=== PATIENT | male | born 1945 | race Caucasian/White ===

== ENCOUNTER 2020-01-07 14:45 | Outpatient (CLI) | payer MEDICARE, SELFPAY ==
--- NOTE | ~2020-01-07 | XR_ITS ---
XR chest 2V DATE: 01/07/2020 15:13 INDICATION: Cough, dry cough. History of hypertension. TECHNIQUE: PA and lateral views COMPARISON: 10/14/2011 two-view chest FINDINGS: Endovascular stent of the ectatic thoracic distal ascending aorta, aortic arch and proximal to mid descending thoracic aorta. Left-sided transvenous pacemaker device with leads overlying right atrium and right ventricle. Heart size is within normal range. There is elevation of left hemidiaphragm with mild atelectasis at the left lung base. The lungs other bryan appear clear. No pleural effusion or pulmonary vascular congestion or pneumothorax. Degenerative changes of the thoracic and lumbar spine. IMPRESSION: Thoracic aortic endovascular stent Left-sided pacemaker device Chronic elevation left leaf of diaphragm mild atelectasis at left lung base No active cardiopulmonary disease Reviewed, dictated and finalized at location A.
== END 2020-01-07 14:46 | disposition home or self-care (01) ==
PROVIDERS: PCP Family Medicine; Visit Provider Family Medicine
DX: R05 Cough (principal); Z95.0 Presence of cardiac pacemaker
CPT/HCPCS: 71046

== ENCOUNTER → 2020-09-22 16:55 | Outpatient (REF) | payer MEDICARE, SELFPAY | LOC: ANHLAB 16:55 | PROVIDERS: PCP Family Medicine; Visit Provider Nurse Practitioner | DX: L82.1 Other seborrheic keratosis (principal) | CPT/HCPCS: 88305 ==

== ENCOUNTER 2020-10-24 13:40 | Outpatient (CLI) | payer MEDICARE, SELFPAY | END 2020-10-24 13:41 | disposition home or self-care (01) | LOC: ANHCOVIDVC 13:40 | PROVIDERS: PCP Family Medicine | DX: Z23 Encounter for immunization (principal) | CPT/HCPCS: 0001A; 91300 ==

== ENCOUNTER 2020-11-14 13:42 | Outpatient (CLI) | payer MEDICARE, SELFPAY | END 2020-11-14 13:43 | disposition home or self-care (01) | LOC: ANHCOVIDVC 13:42 | PROVIDERS: PCP Family Medicine | DX: Z23 Encounter for immunization (principal) | CPT/HCPCS: 0002A; 91300 ==

== ENCOUNTER 2021-02-03 06:42 | Emergency (ER) | payer MEDICARE, SELFPAY ==
--- NOTE | ~2021-02-03 | CT_ITS ---
EXAMINATION: CT abdomen pelvis w con EXAM DATE: 02/03/2021 07:54 INDICATION: Low abdominal pain, diarrhea. TECHNIQUE: Spiral CT of the abdomen and pelvis was performed following intravenous injection of 100 m L Omnipaque 350. Axial, coronal and sagittal images of the abdomen and pelvis were reviewed. The do se-length product (DLP) for this examination was 730.93 mGy-cm. The exposure was tailored according to patient size (auto mA exposure control), and iterative reconstruction (ASIR) was used as additiona l dose reduction technique. Comparison is made to prior examination from 10/18/2012. FINDINGS: Patient has descending thoracic aortic stent seen on lamp shades supervisor image and on the prior CT. There is saccular aneurysmal dilation distal to the stent measuring about 4.6 cm, unchanged. There is abdo socorro aortic dissection and fusiform dilation extending into both iliac arteries with mild interval i ncrease in diameters. At the aortic hiatus aneurysm measures up to 4.6 cm, upper abdominal aorta jaylin ures 4.1 cm, mid abdominal aorta measures 3.1 cm, distal abdominal aorta measures up to 3.5 cm, the r ight common iliac measuring 2.9 cm and the left common iliac 2.1 cm. The liver, spleen, adrenal glands and pancreas are unremarkable. Gallbladder is unremarkable. No bi liary obstruction. Portal and splenic veins are patent. Kidneys enhance symmetrically. There is no hydronephrosis. The prostate is unremarkable. The bladder is unremarkable. There is no retroperi toneal or pelvic lymphadenopathy. Small umbilical fat-containing hernia. The appendix is normal. The stomach and small bowel are unremarkable. Only small amount of colonic contents, but the splenic flexure, descending and sigmoid colon is collapsed with mild wall thickenin g, appearance consistent with mild colitis. There is mild sigmoid colonic diverticulosis. There is n o adjacent inflammatory change to suggest diverticulitis. No free intraperitoneal gas. The heart i s normal in size. There are no pericardial or pleural effusions. There is elevated left hemidiaphra gm, could indicate paralysis. Advanced thoracolumbar spondylosis. Acetabular bone islands are unchan ged. IMPRESSION: 1. Mild descending and sigmoid colonic colitis. 2. Mild colonic diverticulosis. 3. Treated thoracic and untreated abdominal aortic aneurysms, and chronic abdominal aortic dissectio n. Mild increase in size of abdominal aortic and common iliac caliber compared to 2013. 4. Elevated left hemidiaphragm, possible paralysis. Reviewed, dictated and finalized at location B. IMPRESSION: 1. Mild descending and sigmoid colonic colitis. 2. Mild colonic diverticulosis. 3. Treated thoracic and untreated abdominal aortic aneurysms, and chronic abdo socorro aortic dissection. Mild increase in size of abdominal aortic and common i liac caliber compared to 2013. 4. Elevated left hemidiaphragm, possible paralysis.
[2021-02-03 06:47] VITALS: BP 131/79; PULSE 68; RESP 19; TEMP 37.2; O2SAT 97
--- NOTE | 2021-02-03 06:55 | PC.NURSE ---
Pt presents to ED with daughter who states pt has been having diarrhea and abdominal pain since tuesday. Denies nausea, emesis, chest pain, sob, fever and chills. Pt noted to be alert and oriented x4 and in no obvious distress at this time. Pt states abdominal pain is rated 4/10, aching and intermittent. Pt resting comfortably on cart in its lowest position with call button and personal items within reach. Pt advised to press call button for assistance.
--- NOTE | 2021-02-03 07:04 | ED.NAVMDI ---
HPI - Nausea/Vomiting/Diarrhea General Chief complaint: Nausea/Vomiting/Diarrhea Stated complaint: diarrhea Time Seen by Provider: 02/03/21 07:03 Source: patient and family Mode of arrival: ambulatory Limitations: no limitations History of Present Illness HPI Narrative: Patient is a 75-year-old male who presents for evaluation of diarrhea. Patient has had diarrhea over the past several days, intermittent in nature. Patient states it began last Tuesday, was associated with lower abdominal cramping, watery diarrhea and then resolved over the weekend before recurring yesterday. Patient reports abdominal pain is located in the lower abdomen, without radiation to the back, upper abdomen, chest or flanks. He has associated intermittent sharp pain as well. No urinary symptoms. He reports watery diarrhea without blood, mucus or melena. No history of diarrhea. 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 No abdominal bloating. He reports being very gaseous. No recent food indiscretions or travel. He denies fever, chills, chest pain, shortness of breath or cough. He is vaccinated for Covid. Related Data Home Medications Medication Instructions Recorded Confirmed aspirin 81 mg tablet,delayed 81 mg PO DAILY 11/13/19 10/16/20 release clonidine HCl 0.1 mg tablet 0.1 mg PO DAILY 11/13/19 10/16/20 hydralazine 25 mg tablet 12.5 mg PO BID tablet 11/13/19 10/16/20 hydrochlorothiazide 25 mg tablet 25 mg PO DAILY 11/13/19 10/16/20 labetalol 200 mg tablet 200 mg PO TID tablet 11/13/19 10/16/20 Allergies Allergy/AdvReac Type Severity Reaction Status Date / Time hydrocodone Allergy Mild Unknown Verified 02/03/21 07:36 Review of Systems Review of Systems: Narrative: CONSTITUTIONAL: Denies fever, chills, or sweats. EYES: Denies visual changes, redness, or discharge. ENT: Denies rhinorrhea, congestion, sore throat, or otalgia. CARDIOVASCULAR: Denies chest pain, palpitations, or edema. RESPIRATORY: Denies cough or dyspnea. GASTROINTESTINAL: Reports lower abdominal pain without nausea or vomiting, reports watery diarrhea GENITOURINARY: Denies dysuria or hematuria. SKIN: Denies rash or itching. MUSCULOSKELETAL: Denies back pain, joint pain, or myalgia. NEUROLOGIC: Denies headache, numbness, or weakness. [facility] Past Medical History Medical History BMI 30.0-30.9,adult Enlarged prostate without lower urinary tract symptoms (luts) Essential (primary) hypertension Mixed hyperlipidemia JONI (obstructive sleep apnea) Vitamin D deficiency, unspecified Family History Family History Mother Hypertension Father Patient's father is Social History Social History Smoking status: Never smoker Second hand tobacco smoke exposure: No Alcohol intake: never Gender identity (if verbalized by the patient): Male Exam Narrative: Exam Narrative: GENERAL: Awake, alert, conversant HEAD: Normocephalic, atraumatic. EYES: PERRLA and EOMI. ENT: Nares clear, no rhinorrhea or epistaxis. Mucous membranes moist. NECK: Supple. CHEST: No respiratory distress, breathing even and non labored HEART: Regular rate, sinus rhythm ABDOMEN:Non distended, mildly tender in the lower abdomen including the right lower quadrant, suprapubic area, left lower quadrant without rebound or guarding, nonrigid EXTREMITIES: Normal range of motion. No edema. SKIN: Warm, dry, no rash. NEURO:No focal deficits. Alert and oriented x3 Course Vital Signs Vital signs: Vital Signs Temperature 37.2 C 02/03/21 06:47 Pulse Rate 68 02/03/21 06:47 Respiratory Rate 19 02/03/21 06:47 Blood Pressure 131/79 02/03/21 06:47 Pulse Oximetry 97 02/03/21 06:47 Temperature 37.2 C 02/03/21 06:47 Pulse Rate 60 02/03/21 08:14 Respiratory Rate 15 02/03/21 08:14 Blood Pressure 199/70
[2021-02-03 07:35] VITALS: BP 126/74; PULSE 65
[2021-02-03 07:36] VITALS: BP 116/81; PULSE 70
[2021-02-03 07:38] VITALS: BP 116/66; PULSE 67
[2021-02-03 07:38] LABS: Add Urine Microscopic? YES; Appearance Urine Clear (Clear); Bacteria Urine Trace /hpf; Bilirubin Urine Negative (Negative); Blood Urine 1+ (Negative); Color Urine Yellow (Yellow); Glucose Urine UA Negative (Negative); Hyaline Casts Urine 50+ /lpf; Ketones Urine Trace mg/dL (Negative); Leukocyte Esterase Ur Negative LEU/UL (Negative); Mucus Urine Rare /lpf; Nitrate Urine Negative (Negative); Protein Urine 3+ mg/dL (Negative); RBC Urine 21-50 /hpf (0-2); Specific Grav Ur 1.016 (1.001-1.035); Squamous Epithelial Cell Urine Rare /hpf (Few)
[2021-02-03 07:41] LABS: Basophils Percent Auto 0.4 % (0.2-1.2); Eosinophils Absolute Auto 0.3 K/mm3 (0-0.3); Hemoglobin 15.2 g/dL (14.0-18.0); Immature Granulocyte Absolute 0.05 K/mm3 (0.00-0.031); Immature Granulocyte Percent A 0.5 % (0-0.5); Immature Platelet Fraction Pct 1.6 % (0.9-11.2); Lymphocytes Absolute Auto 0.38 K/mm3 (0.9-3.2); Mean Corpuscular HGB Conc 33.8 g/dl (32-36); Mean Corpuscular Hemoglobin 29.9 pg (26-34); Mean Corpuscular Volume 88.4 fl (80-100); Mean Platelet Volume 8.9 fl (7.4-10.4); Monocytes Absolute Auto 0.6 K/mm3 (0.1-0.6); Monocytes Percent Auto 6.1 % (2.6-8.5); Neutrophils Absolute Auto 8.1 K/mm3 (1.3-6.7); Platelet Count Result 150 k/mm3 (150-375); Red Blood Count 5.09 M/mm3 (4.6-6.20); Red Cell Distribution Width 13.4 % (11.5-14.5); White Blood Count 9.4 K/mm3 (4.5-10.0)
[2021-02-03 07:42] LABS: Alanine Aminotransferase 21 U/L (4-50); Albumin Level 3.9 g/dL (3.5-5.1); Alkaline Phosphatase 74 U/L (38-126); Anion Gap 10 mmol/L (8-16); Aspartate Amino Transferase 32 U/L (17-59); Bilirubin,Total 1.1 mg/dL (0.2-1.3); Blood Urea Nitrogen 16 mg/dL (9-20); Calcium 9.3 mg/dL (8.4-10.2); Carbon Dioxide 26 mmol/L (22-30); Chloride 97 mmol/L (98-107); Estimated CRCL calculation 53 ml/min; Estimated Glomerular Filt Rate > 60; Glucose 119 mg/dL (75-110); Lipase 41 U/L (23-300); Potassium 3.2 mmol/L (3.4-5.0); Sodium 133 mmol/L (137-145)
[2021-02-03 08:14] VITALS: BP 199/70; PULSE 60; RESP 15; O2SAT 95
[2021-02-03] MEDS: MORPHINE SULFATE (*CRX) 4 MG/ML INJ IV PUSH (08:14)
[2021-02-03] MEDS: ONDANSETRON INJ 4 MG/2 ML VIAL IV PUSH (08:14)
[2021-02-03] MEDS: SODIUM CHLORIDE 0.9% IV 1,000 ML 999 ML IV CONT (08:14)
[2021-02-03] MEDS: POTASSIUM CHLORIDE 20 MEQ PACKET (FOR LIQUID) 40 MEQ PO (10:03)
[2021-02-03 10:09] VITALS: BP 125/81; PULSE 65; RESP 18; O2SAT 97
== END 2021-02-03 10:26 | disposition home or self-care (01) ==
PROVIDERS: Emergency Medicine; Emergency Provider Emergency Medicine; PCP Family Medicine
DX: K52.9 Noninfective gastroenteritis and colitis, unspecified (principal); N40.0 Benign prostatic hyperplasia without lower urinary tract symptoms; I10 Essential (primary) hypertension; E78.2 Mixed hyperlipidemia; G47.33 Obstructive sleep apnea (adult) (pediatric); E55.9 Vitamin D deficiency, unspecified; K57.90 Diverticulosis of intestine, part unspecified, without perforation or abscess without bleeding; I71.4 Abdominal aortic aneurysm, without rupture
CPT/HCPCS: 36415; 74177; 80053; 81001; 83690; 85025; 85055; 96361; 96374; 96375; 99284; A9270; J2270; J2405; J7030; Q9967

== ENCOUNTER 2021-04-01 16:18 | Outpatient (CLI) | payer MEDICARE, SELFPAY ==
[2021-04-01 16:47] LABS: Basophils Absolute Auto 0.1 K/mm3 (0.0-0.1); Basophils Percent Auto 0.8 % (0.2-1.2); Eosinophils Absolute Auto 0.3 K/mm3 (0-0.3); Eosinophils Percent Auto 4.6 % (0-4.4); Hematocrit 40.8 % (42.0-52.0); Hemoglobin 13.9 g/dL (14.0-18.0); Immature Granulocyte Absolute 0.02 K/mm3 (0.00-0.031); Immature Granulocyte Percent A 0.3 % (0-0.5); Immature Platelet Fraction Pct 1.3 % (0.9-11.2); Lymphocytes Absolute Auto 0.66 K/mm3 (0.9-3.2); Lymphocytes Percent Auto 10.4 % (18.3-44.2); Mean Corpuscular HGB Conc 34.1 g/dl (32-36); Mean Corpuscular Hemoglobin 30.5 pg (26-34); Mean Corpuscular Volume 89.7 fl (80-100); Mean Platelet Volume 8.9 fl (7.4-10.4); Monocytes Absolute Auto 0.5 K/mm3 (0.1-0.6); Monocytes Percent Auto 8.1 % (2.6-8.5); Neutrophils Absolute Auto 4.8 K/mm3 (1.3-6.7); Neutrophils Percent Auto 75.8 % (45.5-73.1); Platelet Count Result 136 k/mm3 (150-375); Red Blood Count 4.55 M/mm3 (4.6-6.20); Red Cell Distribution Width 13.6 % (11.5-14.5); White Blood Count 6.3 K/mm3 (4.5-10.0)
[2021-04-01 17:01] LABS: Calcium 8.7 mg/dL (8.4-10.2)
[2021-04-01 17:14] LABS: Parathyroid Intact 24.3 pg/mL (7.5-53.5)
[2021-04-05 15:54] LABS: Ionized Calcium 4.8 mg/dL (4.8-5.6)
== END 2021-04-01 16:19 | disposition home or self-care (01) ==
PROVIDERS: PCP Family Medicine; Visit Provider Nurse Practitioner Family
DX: E83.52 Hypercalcemia (principal); D69.6 Thrombocytopenia, unspecified
CPT/HCPCS: 36415; 82310; 82330; 83970; 85025; 85055

== ENCOUNTER 2022-08-19 07:00 | Outpatient (NON) | payer MEDICARE, SELFPAY | END 2022-08-19 07:01 | disposition home or self-care (01) | LOC: ANHLAB 08-20 11:55 | PROVIDERS: PCP Family Medicine; Visit Provider Nurse Practitioner | DX: L57.0 Actinic keratosis (principal) | CPT/HCPCS: 88305 ==

== ENCOUNTER 2022-11-04 19:31 | Emergency (ER) | payer MEDICARE, SELFPAY ==
[2022-11-04 19:35] VITALS: BP 143/82; PULSE 65; RESP 18; TEMP 36.3; O2SAT 96
--- NOTE | 2022-11-04 19:48 | ECG_ITS ---
Measurements Intervals [place] Rate: 69 P: 251 TN: 170 QRS: -45 QRSD: 190 T: 124 QT: 463 QTc: 499 Interpretive Statements ELECTRONIC ATRIAL PACEMAKER ELECTRONIC VENTRICULAR PACEMAKER BASELINE ARTIFACT- I, II, AVR NO FURTHER INTERPRETATION IS POSSIBLE ATYPICAL ECG NO PREVIOUS ECG AVAILABLE FOR COMPARISON Electronically Signed On 11-04-2022 21:25:56 CDT by Richard Hernandez D.O.
--- NOTE | 2022-11-04 20:16 | PC.NURSE ---
patient reports that the food cleared his throat and he left from waiting area
== END 2022-11-04 20:45 | disposition left against medical advice (07) ==
PROVIDERS: Emergency Provider Emergency Medicine; PCP Family Medicine
DX: T17.228A Food in pharynx causing other injury, initial encounter (principal)
CPT/HCPCS: 93005; 99199

== ENCOUNTER 2022-11-19 02:15 | Day surgery (SDC) | payer MEDICARE, SELFPAY ==
[2022-11-15 14:21] VITALS: BMI 28.7
--- NOTE | 2022-11-19 12:49 | WPDANESEPPF ---
Anes - Initial Pre Proc Eval Procedure: Operation Date: 11/19/22 14:00 Proposed Procedures p Esophagogastroduodenoscopy - Bud Bartlett MD Date/Time: 11/19/22 12:49 Surgeon: Bud Bartlett MD Pre Op Diagnosis: dysphagia, esophageal Stricture Patient Data Age: 77 Gender: M Height: 1.8 m Weight: 93.5 kg Allergies Allergy/AdvReac Type Severity Reaction Status Date / Time No Known Allergies Allergy Verified 11/15/22 14:23 Home Medications Medication Instructions Recorded Confirmed Type aspirin 81 mg tablet,delayed 81 mg PO DAILY 11/13/19 11/15/22 History release (Adult Low Dose Aspirin) clonidine HCl 0.1 mg tablet 0.1 mg PO TID 11/13/19 11/15/22 History hydrochlorothiazide 25 mg tablet 25 mg PO DAILY 11/13/19 11/15/22 History labetalol 200 mg tablet 200 mg PO TID 11/13/19 11/15/22 History rosuvastatin 40 mg tablet (Crestor) 40 mg PO DAILY #30 tabs 08/08/22 11/15/22 Rx cholecalciferol (vitamin D3) 50 50 mcg PO DAILY 11/15/22 11/15/22 History mcg (2,000 unit) tablet (Vitamin D3) diphenhydramine HCl 50 mg tablet 50 mg PO DAILY 11/15/22 11/15/22 History Patient hx anesthesia problems: none Family hx anesthesia problems: none Results Review: All pre-operative results and documents have been reviewed as part of the pre-operative evaluation. [facility] Past Medical History Medical History (Updated 03/15/22 @ 08:31 by Farhana Curry NP) BMI 23.0-23.9, adult BMI 27.0-27.9,adult BMI 29.0-29.9,adult BMI 30.0-30.9,adult Chronic low back pain Enlarged prostate without lower urinary tract symptoms (luts) Essential (primary) hypertension Mixed hyperlipidemia JONI (obstructive sleep apnea) Psoriasis Traumatic tear of thoracic aorta Vitamin D deficiency, unspecified Family History Family History Mother Hypertension Father Patient's father is Sibling Pacemaker Sibling COPD (chronic obstructive pulmonary disease) Tobacco abuse Social History Social History Smoking status: Never smoker Second hand tobacco smoke exposure: No Alcohol intake: never Substance use: never Substance use type: does not use Living arrangements: with family Occupation/Education: retired 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 Informed Consent: The patient's anesthetic plan and its attendant risks and benefits were discussed with the patient/family/POA. Questions were solicited and answers provided to the satisfaction of the patient/family/POA.
[2022-11-19 12:54] VITALS: BP 138/83; PULSE 66; RESP 18; TEMP 36.3; O2SAT 98; BMI 28.7
--- NOTE | 2022-11-19 12:58 | PM.HPGS ---
History of Present Illness History of Present Illness Consent: Risks, benefits, and alternatives have been discussed and questions answered. Patient agrees to proceed with procedure. Chief complaint: dysphagia, Narrative: Jude Weaver is a 77 year old male presents for EGD. Patient reports over the last years had 1 or 2 episodes where food will catch in the mid substernal portion the chest. Typically this happens when eating chicken. He usually takes care to chew food into small pieces. He will cut it into small pieces. 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 At that time maintained on PPI acid suppression. Patient's most recent episode failed to pass immediately. Patient went to the emergency room and chicken food impaction appeared to pass spontaneously. Patient has now been referred for follow-up EGD and possible dilatation. Patient denies any bleeding or weight loss. He has no significant heartburn. He no longer takes acid reducing medications. Patient's weight has remained stable. Review of Systems Review of Systems: Review of systems noncontributory. [facility] Past Medical History Medical History (Updated 11/19/22 @ 13:01 by Bud Bartlett MD) BMI 23.0-23.9, adult BMI 27.0-27.9,adult BMI 29.0-29.9,adult BMI 30.0-30.9,adult Chronic low back pain Enlarged prostate without lower urinary tract symptoms (luts) Essential (primary) hypertension Mixed hyperlipidemia JONI (obstructive sleep apnea) Psoriasis Traumatic tear of thoracic aorta Vitamin D deficiency, unspecified Family History Family History Mother Hypertension Father Patient's father is Sibling Pacemaker Sibling COPD (chronic obstructive pulmonary disease) Tobacco abuse Social History Social History Smoking status: Never smoker Second hand tobacco smoke exposure: No Alcohol intake: never Substance use: never Substance use type: does not use Living arrangements: with family 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/Education: 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 Gender identity (if verbalized by the patient): Male Spiritual care concerns: No Meds Home Medications and Allergies Home Medications Medication Instructions Recorded Confirmed Type aspirin 81 mg tablet,delayed 81 mg PO DAILY 11/13/19 11/19/22 History release (Adult Low Dose Aspirin) clonidine HCl 0.1 mg tablet 0.1 mg PO TID 11/13/19 11/19/22 History hydrochlorothiazide 25 mg tablet 25 mg PO DAILY 11/13/19 11/19/22 History labetalol 200 mg tablet 200 mg PO TID 11/13/19 11/19/22 History rosuvastatin 40 mg tablet (Crestor) 40 mg PO DAILY #30 tabs 08/08/22 11/19/22 Rx cholecalciferol (vitamin D3) 50 50 mcg PO DAILY 11/15/22 11/19/22 History mcg (2,000 unit) tablet (Vitamin D3) diphenhydramine HCl 50 mg tablet 50 mg PO DAILY 11/15/22 11/19/22 History Allergies Allergy/AdvReac Type Severity Reaction Status Date / Time No Known Allergies Allergy Verified 11/19/22 12:53 Vital Signs Vital Signs - 24 hr 11/19/22 12:54 Temperature 97.3 F L Pulse Rate 66 Respiratory Rate 18 Blood Pressure 138/83 Pulse Oximetry 98 Oxygen Delivery Room Air Exam Narrative: Physical exam reveals patient to be alert. Vital signs stable. HEENT exam is unremarkable. Patient is anicteric. Lungs are clear to auscultation and percussion. Heart is without murmur or extra sounds. Abdomen bowel sounds present soft nontender with no organomegaly. Digital external rectal exam is normal. Assessment and Plan Assessment and plan (1) Dysphagia: Code(s): R13.10 - Dysphagia, unspecified Status: Acute Assessment and Plan: Patient has difficulty swallowing large pieces of meat. He has had an esophageal web many years ago. Recently in the hospital with
[2022-11-19] MEDS: LACTATED RINGERS 1,000 ML 150 ML IV CONT (13:08)
[2022-11-19 13:38] VITALS: BP 96/59; PULSE 62; RESP 16; O2SAT 96
[2022-11-19 13:48] VITALS: BP 93/57; PULSE 62; RESP 16; O2SAT 96
[2022-11-19 13:58] VITALS: BP 103/58; PULSE 63; RESP 19; O2SAT 97
== END 2022-11-19 14:14 | disposition home or self-care (01) ==
PROVIDERS: PCP Family Medicine; Visit Provider Internal Medicine Gastroenterology
PROC: 0DJ08ZZ Inspection of Upper Intestinal Tract, Via Natural or Artificial Opening Endoscopic (ICD-10-PCS; CPT 43235; principal; 2022-11-19 14:00)
DX: K22.2 Esophageal obstruction (principal); I10 Essential (primary) hypertension; E78.2 Mixed hyperlipidemia; G47.33 Obstructive sleep apnea (adult) (pediatric); L40.9 Psoriasis, unspecified; E55.9 Vitamin D deficiency, unspecified; N40.0 Benign prostatic hyperplasia without lower urinary tract symptoms; Z79.82 Long term (current) use of aspirin
CPT/HCPCS: 43249; C1726; J2704; J7120

== ENCOUNTER 2023-05-15 11:31 | Emergency (ER) | payer MEDICARE, SELFPAY ==
[2023-05-15] VITALS (9 sets, daily range): BP systolic 115–159; BP diastolic 68–95; PULSE 60–80; RESP 10–20; TEMP 36.3–36.8; O2SAT 91–98
--- NOTE | ~2023-05-15 | CT_ITS ---
EXAMINATION: CTA chest abdomen pelvis DATE: 05/15/2023 13:49 CDT INDICATION: Abdominal pain. History of dissection. TECHNIQUE: Computed tomographic angiography (CTA) of the chest, abdomen, and pelvis was performed wit hout and with 100 mL Omnipaque-350 intravenous contrast. The dose-length product was 1026.44 mGy-cm. Maximum intensity projection 3D-reconstructions of the aorta and other arteries were constructed by t deven technologist on a separate workstation. COMPARISON: CT dated 02/03/2021 FINDINGS: There peripheral interstitial infiltrates with interlobular septal thickening, possibly mild edema. N o endobronchial lesions. There is an endovascular stent involving the thoracic aorta extending from t he aortic arch inferiorly to the lower thoracic aorta. There is chronic aortic dissection beginning i n the lower thoracic aorta just below the stent. Stable 4 cm abdominal aortic aneurysm at the level o f the left renal vein, measuring 4.1 cm. The dissection extends into the common iliac arteries bilate rally right common iliac artery is stable measuring 2.9 cm. Left common iliac artery is also stable. Nonobstructive bowel gas pattern. The liver, spleen, pancreas, adrenal glands and kidneys are unremar kable. Gallbladder is present. Small fat-containing umbilical hernia. Nonobstructive bowel pattern. C olonic diverticulosis without evidence for diverticulitis. Small amount of free fluid in the pelvis. Moderate colonic fecal loading. Elevated left diaphragm, suspicious for phrenic nerve paralysis. IMPRESSION: 1. Stable treated thoracic and untreated abdominal aortic aneurysms with chronic abdominal aortic dis section extending into the common iliac arteries. 2: Mild peripheral interstitial infiltrates with interlobular septal thickening, suspicious for chay a. Reviewed, dictated and finalized at location A. IMPRESSION: 1. Stable treated thoracic and untreated abdominal aortic aneurysms with chroni c abdominal aortic dissection extending into the common iliac arteries. 2: Mild peripheral interstitial infiltrates with interlobular septal thickenin g, suspicious for edema.
--- NOTE | 2023-05-15 12:01 | ED.ABDPAIN ---
HPI - Abdominal Pain General Chief Complaint: Abdominal Pain Stated Complaint: ABD pain Time Seen by Provider: 05/15/23 11:52 History of Present Illness HPI narrative: Patient is a 77-year-old male with history of prior thoracic and abdominal dissection, s/p repair, HTN here with abdominal pain. patient notes that about 1 week ago he had an episode of lower abdominal pain which was relieved after using stool softeners and having a large bowel movement. He then notes some diarrhea after the fact. He has been feeling well throughout the week this week and then yesterday began having some diffuse lower abdominal pain again. Today the pain seemed to the locate more to the left lower side, cramping and non radiating. He does note a normal bowel movement today which was non bloody and soft but not liquid. He denies any urinary symptoms or hematuria. He denies any associated fever, chills, cough, congestion. Of note he did have a screening CTA last week with his surgeon at [facility] to monitor his aortic dissection which they noted was stable and they recommended follow up in 1 year. No known sick contacts. He notes his last colonoscopy was >10 years ago and has stopped them due to his age at this point. Related Data Home Medications Medication Instructions Recorded Confirmed aspirin 81 mg tablet,delayed 81 mg PO DAILY 11/13/19 12/16/22 release (Adult Low Dose Aspirin) clonidine HCl 0.1 mg tablet 0.1 mg PO TID 11/13/19 12/16/22 hydrochlorothiazide 25 mg tablet 25 mg PO DAILY 11/13/19 12/16/22 labetalol 200 mg tablet 200 mg PO TID 11/13/19 12/16/22 cholecalciferol (vitamin D3) 50 50 mcg PO DAILY 11/15/22 12/16/22 mcg (2,000 unit) tablet (Vitamin D3) diphenhydramine HCl 50 mg tablet 50 mg PO DAILY 11/15/22 12/16/22 Allergies Allergy/AdvReac Type Severity Reaction Status Date / Time No Known Allergies Allergy Verified 05/15/23 11:40 Review of Systems Review of Systems: CONSTITUTIONAL: Denies fever, chills, or sweats. EYES: Denies visual changes, redness, or discharge. ENT: Denies rhinorrhea, congestion, sore throat, or otalgia. CARDIOVASCULAR: Denies chest pain, palpitations, or edema. RESPIRATORY: Denies cough or dyspnea. GASTROINTESTINAL: abdominal pain, nausea, no vomiting or diarrhea. GENITOURINARY: Denies dysuria or hematuria. SKIN: Denies rash or itching. MUSCULOSKELETAL: Denies back pain, joint pain, or myalgia. NEUROLOGIC: Denies headache, numbness, or weakness. PSYCHIATRIC: Denies anxiety or depression. PMFSH Past Medical History Medical History BMI 23.0-23.9, adult BMI 27.0-27.9,adult BMI 29.0-29.9,adult BMI 30.0-30.9,adult Chronic low back pain Enlarged prostate without lower urinary tract symptoms (luts) Essential (primary) hypertension Mixed hyperlipidemia JONI (obstructive sleep apnea) Psoriasis Traumatic tear of thoracic aorta Vitamin D deficiency, unspecified Family History Family History Mother Hypertension Father Patient's father is Sibling Pacemaker Sibling COPD (chronic obstructive pulmonary disease) Tobacco abuse Social History Social History Smoking status: Never smoker Second hand tobacco smoke exposure: No Alcohol intake: never Substance use: never Substance use type: does not use Living arrangements: with family Occupation/Education: 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 HEAD: Normocephalic, atraumatic. EYES: PERRLA and EOMI. ENT: Nares clear. Mucous membranes moist. NECK: Supple. CHEST: Clear to auscultation. No respiratory distress. HEART: Regu
--- NOTE | 2023-05-15 12:02 | ECG_ITS ---
Measurements Intervals [place] Rate: 61 P: -59 [place]: 157 QRS: -59 QRSD: 202 T: 125 QT: 505 QTc: 511 Interpretive Statements ELECTRONIC ATRIAL PACEMAKER ELECTRONIC VENTRICULAR PACEMAKER BASELINE ARTIFACT- I, III, AVR, AVL NO FURTHER INTERPRETATION IS POSSIBLE ATYPICAL ECG COMPARED TO ECG 11/04/2022 19:51:59 NO SIGNIFICANT CHANGES Electronically Signed On 05-15-2023 13:28:27 CDT by Richard Hernandez D.O.
[2023-05-15 12:43] LABS: Basophils Absolute Auto 0.1 K/mm3 (0.0-0.1); Basophils Percent Auto 0.6 % (0.2-1.2); Eosinophils Absolute Auto 0.3 K/mm3 (0-0.3); Eosinophils Percent Auto 2.7 % (0-4.4); Hematocrit 44.2 % (42.0-52.0); Hemoglobin 15.2 g/dL (14.0-18.0); Immature Granulocyte Absolute 0.04 K/mm3 (0.00-0.031); Immature Granulocyte Percent A 0.4 % (0-0.5); Lymphocytes Absolute Auto 0.47 K/mm3 (0.9-3.2); Lymphocytes Percent Auto 4.5 % (18.3-44.2); Mean Corpuscular HGB Conc 34.4 g/dl (32-36); Mean Corpuscular Hemoglobin 32.9 pg (26-34); Mean Corpuscular Volume 95.7 fl (80-100); Mean Platelet Volume 9.5 fl (7.4-10.4); Monocytes Absolute Auto 0.5 K/mm3 (0.1-0.6); Monocytes Percent Auto 4.5 % (2.6-8.5); Neutrophils Percent Auto 87.3 % (45.5-73.1); Platelet Count Result 116 k/mm3 (150-375); Red Blood Count 4.62 M/mm3 (4.6-6.20); Red Cell Distribution Width 12.4 % (11.5-14.5); White Blood Count 10.4 K/mm3 (4.5-10.0)
[2023-05-15 12:50] LABS: Lactic Acid Reflex 0.9 mmol/L (0.7-2.0)
[2023-05-15 12:50] LABS: INR 1.1; Prothrombin Time 14.8 Seconds (11.1-14.7)
[2023-05-15 12:51] LABS: Alanine Aminotransferase 25 U/L (6-50); Alkaline Phosphatase 73 U/L (38-126); Anion Gap 8 mmol/L (8-16); Aspartate Amino Transferase 35 U/L (17-59); Bilirubin,Total 1.1 mg/dL (0.2-1.3); Blood Urea Nitrogen 21 mg/dL (9-20); Calcium 8.5 mg/dL (8.4-10.2); Carbon Dioxide 28 mmol/L (22-30); Chloride 98 mmol/L (98-107); Estimated CRCL calculation 56 ml/min; Estimated Glomerular Filt Rate > 60; Glucose 105 mg/dL (65-110); Lipase 39 U/L (23-300); Partial Thromboplastin Time 32.7 SECONDS (22.3-36.8); Potassium 3.7 mmol/L (3.4-5.0); Sodium 134 mmol/L (137-145)
[2023-05-15] MEDS: ONDANSETRON INJ 4 MG/2 ML VIAL IV PUSH (13:00)
[2023-05-15 13:01] LABS: Troponin I < 0.012 ng/mL (0.000-0.034)
[2023-05-15] MEDS: MORPHINE SULFATE (*CRX) 4 MG/ML INJ IV PUSH ×2 (13:01→14:13)
[2023-05-15] MEDS: SODIUM CHLORIDE 0.9% IV 500 ML 999 ML IV CONT (13:03)
[2023-05-15 13:21] LABS: Appearance Urine Clear (Clear); Bacteria Urine None Seen /hpf; Bilirubin Urine Negative (Negative); Blood Urine 2+ (Negative); Color Urine Yellow (Yellow); Glucose Urine UA Negative (Negative); Ketones Urine Negative (Negative); Leukocyte Esterase Ur Negative LEU/UL (Negative); Nitrate Urine Negative (Negative); Non Pathogenic Casts 0-2; Protein Urine 3+ mg/dL (Negative); Specific Grav Ur 1.013 (1.001-1.035); Squamous Epithelial Cell Urine None seen /hpf (Few); WBC Urine 0-5 /hpf; pH Urine 6.5 (5.0-9.0)
[2023-05-15 13:26] LABS: Add Urine Microscopic? YES
== END 2023-05-15 17:00 | disposition home or self-care (01) ==
PROVIDERS: Emergency Provider Student in an Organized Health Care Education/Training Program; PCP Family Medicine
DX: R10.32 Left lower quadrant pain (principal); R31.21 Asymptomatic microscopic hematuria; I71.02 Dissection of abdominal aorta; I10 Essential (primary) hypertension; E78.2 Mixed hyperlipidemia; E55.9 Vitamin D deficiency, unspecified; N40.0 Benign prostatic hyperplasia without lower urinary tract symptoms; G47.33 Obstructive sleep apnea (adult) (pediatric); Z79.82 Long term (current) use of aspirin; R91.8 Other nonspecific abnormal finding of lung field; Z95.0 Presence of cardiac pacemaker
CPT/HCPCS: 36415; 71275; 74174; 80053; 81001; 83605; 83690; 84484; 85025; 85610; 85730; 93005; 96361; 96374; 96375; 96376; 99284; J2270; J2405; J7040; Q9967

== ENCOUNTER 2023-06-07 12:37 | Outpatient (NON) | payer MEDICARE, SELFPAY | END 2023-06-07 12:38 | disposition home or self-care (01) | LOC: ANHLAB 06-08 12:41 | PROVIDERS: PCP Family Medicine; Visit Provider Nurse Practitioner | DX: D48.5 Neoplasm of uncertain behavior of skin (principal); L98.8 Other specified disorders of the skin and subcutaneous tissue | CPT/HCPCS: 88305 ==

== ENCOUNTER 2024-03-01 08:54 | Outpatient (CLI) | payer MEDICARE, SELFPAY ==
--- NOTE | ~2024-03-01 | XR_ITS ---
Clinical Indication: Chronic cough PA and lateral views of the chest: Comparison: 01/07/2020 Findings: The lungs are clear, without evidence of focal consolidation or pleural effusion. Cardiome diastinal silhouette is stable, with aortic arch stent graft and pacemaker device. Stable elevation l eft hemidiaphragm. Bones and soft tissues are unremarkable. Impression: No acute abnormality. Stent graft of the aortic arch and pacemaker device. Stable elevation left hemidiaphragm. Reviewed, dictated and finalized at location M. Impression: No acute abnormality. Stent graft of the aortic arch and pacemaker device. Stable elevation left hemidiaphragm.
== END 2024-03-01 08:55 ==
LOC: MICIMG 08:57
PROVIDERS: PCP Family Medicine
DX: R05.3 Chronic cough (principal); J98.6 Disorders of diaphragm; Z95.0 Presence of cardiac pacemaker
CPT/HCPCS: 71046

== ENCOUNTER 2024-06-12 10:42 | Outpatient (CLI) | payer MEDICARE, SELFPAY ==
--- NOTE | ~2024-06-12 | XR_ITS ---
XR chest 2V 06/12/2024 11:02 Indication: Chronic cough Procedure: 2 view chest Comparison: 09/03/2011 Findings: Heart size normal. There is an endovascular stents of the aorta. Pacemaker leads are stable . Elevated left diaphragm. Left basilar atelectasis is unchanged. Right lung clear. No acute focal pn eumonia, edema or pneumothorax. Impression: 1: Chronic left basilar atelectasis with elevation of the diaphragm. Reviewed, dictated and finalized at location B. Impression: 1: Chronic left basilar atelectasis with elevation of the diaphragm.
== END 2024-06-12 10:43 | disposition home or self-care (01) ==
PROVIDERS: PCP Family Medicine; Visit Provider Family Medicine
DX: J98.11 Atelectasis (principal); R05.3 Chronic cough
CPT/HCPCS: 71046

== ENCOUNTER 2024-06-15 08:43 | Outpatient (CLI) | payer MEDICARE, SELFPAY | END 2024-06-15 08:44 | disposition home or self-care (01) | LOC: ANHAUDIO 08:44 | PROVIDERS: PCP Family Medicine; Visit Provider Family Medicine | DX: H90.3 Sensorineural hearing loss, bilateral (principal) | CPT/HCPCS: 92557; 92567 ==

== ENCOUNTER 2024-07-24 13:30 | Outpatient (RCR) | payer MEDICARE, SELFPAY | END 2024-07-24 23:59 | disposition home or self-care (01) | LOC: ANHAUDIO 13:30 | PROVIDERS: PCP Family Medicine; Visit Provider Family Medicine | DX: Z46.1 Encounter for fitting and adjustment of hearing aid (principal) | CPT/HCPCS: 99199; V5261 ==

== ENCOUNTER 2025-04-19 12:47 | Emergency (ER) | payer MEDICARE, SELFPAY ==
[2025-04-19] VITALS (31 sets, daily range): BP systolic 97–153; BP diastolic 59–96; PULSE 60–92; RESP 12–24; TEMP 36.8; O2SAT 83–98
--- NOTE | ~2025-04-19 | XR_ITS ---
EXAMINATION: XR chest 1V portable, 04/19/2025 14:05 CDT HISTORY: Abdominal pain COMPARISON: No comparisons available. Technique: Single view. Findings: COPD changes. Elevation left hemidiaphragm. Mild pulmonary venous congestion. No pneumothorax. Moderate cardiomegaly. Mediastinal and hilar contours are within normal limits. Bony thorax no acute abnormality. Left pacemaker. Endovascular stent noted. Impression: Mild CHF Reviewed, dictated and finalized at location A. Impression: Mild CHF
--- NOTE | ~2025-04-19 | CT_ITS ---
EXAMINATION: CT abdomen pelvis w con, 04/19/2025 14:50 CDT HISTORY: Abdominal pain COMPARISON: Comparison CTA 05/15/2023. TECHNIQUE: CT scan of the abdomen and pelvis was performed with contrast. Isovue 300, 92cc injected IV. One or more of the following dose reduction techniques were used: automated exposure control, adjustment of the mA and/or kV according to patient size, use of iterative reconstruction technique. Unless otherwise stated, incidental findings do not require dedicated follow up imaging FINDINGS: CT abdomen: LUNG BASES: Elevation left hemidiaphragm. The lung bases demonstrate chronic changes. LIVER: Subcentimeter probable liver cysts. The main portal vein is patent. No intrahepatic biliary duct dilatation. SPLEEN: Unremarkable, no splenomegaly. KIDNEYS: Right Kidney: Unremarkable. No calculi. No hydronephrosis. Left Kidney: Unremarkable. No calculi. No hydronephrosis ADRENAL GLANDS: Unremarkable. PANCREAS: Moderate atrophy of the pancreas. GALLBLADDER/BILIARY: Unremarkable. No biliary dilatation. STOMACH AND ESOPHAGUS: The stomach appears decompressed. BOWEL/MESENTERY: Moderate fecal content. Moderate diverticulosis, no colitis or diverticulitis. Appendix is air-filled. Mesentery normal. No dilated small bowel loops. ADENOPATHY/RETROPERITONEUM: No lymphadenopathy. AORTA/VASCULATURE: Aneurysmal dilatation of the thoracic aorta with partially imaged endovascular stent. There is a chronic-appearing dissection of the distal thoracic and abdominal aorta without aneurysmal dilatation of the proximal abdominal aorta maximally measuring 3.6 x 3.7 cm. The dissection extends into the common iliac arteries bilaterally without aneurysmal dilatation of the right common iliac artery measuring 2.8 cm and of the left common iliac artery measuring 3.5 cm. FREE FLUID OR FREE AIR: No free fluid.. CT pelvis: SOLID ORGANS/REPRODUCTIVE: The prostate is enlarged, correlate with PSA. BLADDER: Circumferential thickening of the bladder wall which appears slightly distended. OSSEOUS STRUCTURES: Scattered sclerotic bone islands. Moderate degenerative changes lumbar spine. No lytic lesions. OVERLYING SOFT TISSUES: Small fat-containing umbilical hernia. IMPRESSION: 1. Chronic appearing dissection detailed above. Aneurysmal dilatation of the aorta and the common iliac arteries which accounting for differences in technique appears slightly progressed compared to the previous exam. 2. Incidental findings above Reviewed, dictated and finalized at location A. IMPRESSION: 1. Chronic appearing dissection detailed above. Aneurysmal dilatation of the ao rta and the common iliac arteries which accounting for differences in technique appears slightly progressed compared to the previous exam. 2. Incidental findings above
--- OUTSIDE RECORDS SUMMARY | 2025-04-19 12:50 | XMS_ITS | Encounter Summary ---
Author Organization [facility] Address [address] [place] [address] Phone Care Team Providers Care Touch Up Worker Name Role Phone Macario Dai MD Primary Care Provider [phone] Encounter Details Date Type Department Care Team (Late st Contact Info) Description 12/24/2016 Orders Only [facility] CAR CLINCONV Provider, MD Hilda [address] [place] [address] Social History Tobacco Use Types Packs/Day Years Used Date Smoking Tobacco: Never Assessed Sex and Gender Information Value Date Recorded Sex Assigned at Not on file Legal Sex Male 1:40 AM STRATEGY EXECUTION CONSULTANT Gender Identity Male 10/07/2021 11:24 AM STRATEGY EXECUTION CONSULTANT Sexual Orientation Straight 10/07/2021 11 :24 AM STRATEGY EXECUTION CONSULTANT documented as of this encounter Plan of Treatment Not on file documented as of this encounter Procedures Procedure Name Priority Date/Time Associated Diagnosis Comments CARDIOLOGY REPORT 12/24/2016 CARDIOLOGY REPORT 12/24/2016 documented in this encounter Results * CARDIOLOGY REPORT (12/24/2016) Anatomical Region Laterality Modality Other Narrative 12/24/2016 Ordered by an unspecified provider. us Historical Provider [facility] C[facility] SERVICES PROCE DURES Final Result * CARDIOLOGY REPORT (12/24/2016) Anatomical Region Laterality Modality Other Narrative 12/24/2016 Ordered by an unspecified provider. us Historical Provider CV CARDIAC SERVICES PROCE DURES Final Result documented in this encounter Visit Diagnoses Not on filedocumented in this encounter Care Teams Touch Up Worker Relationship Specialty Start Date End Date Macario Dai MD PCP - General 11/09/16 documented as of this encounter
--- OUTSIDE RECORDS SUMMARY | 2025-04-19 12:50 | XMS_ITS | Encounter Summary ---
Author Organization [facility] Address [address] [place] [address] Phone Care Team Providers Care Plastic Surgery Nurse Name Role Phone Macario Dai MD Primary Care Provider [phone] Encounter Details Date Type Department Care Team (Late st Contact Info) Description 12/21/2017 Orders Only [facility] CAR CLINCONV ProviderHilda MD [address] [place] [address] Social History Tobacco Use Types Packs/Day Years Used Date Smoking Tobacco: Never Sex and Gender Information Value Date Recorded Sex Assigned at Not on file Legal Sex Male 1:40 AM PROFESSOR OF HISTORY Gender Identity Male 10/07/2021 11:24 AM PROFESSOR OF HISTORY Sexual Orientation Straight 10/07/2021 11 :24 AM PROFESSOR OF HISTORY documented as of this encounter Plan of Treatment Not on file documented as of this encounter Procedures Procedure Name Priority Date/Time Associated Diagnosis Comments CARDIOLOGY REPORT 12/21/2017 documented in this encounter Results * CARDIOLOGY REPORT (12/21/2017) Anatomical Region Laterality Modality Other Narrative 12/21/2017 Ordered by an unspecified provider. us Historical Provider [facility] SERVICES RHIANNON MELÉNDEZ Final Result documented in this encounter Visit Diagnoses Not on filedocumented in this encounter Care Teams Plastic Surgery Nurse Relationship Specialty Start Date End Date Macario Dai MD PCP - General 11/09/16 documented as of this encounter
--- OUTSIDE RECORDS SUMMARY | 2025-04-19 12:50 | XMS_ITS | Clinical Summary ---
Author Organization [facility] Address [address] [place] [address] Care Team Providers Care Farm Machine Tender Name Role Phone Macario Dai MD Primary Care Provider [phone] Allergies No known active allergies Medications cholecalcifero l (VITAMIN D-3) 2,000 unit capsuleIndicat ions:Vitamin D Deficiency Take 1 capsule (2,000 Units total) by mouth every morning Active rosuvastatin (CRESTOR) 20 mg tabletIndicati ons:hyperlipid emia Take 2 tablets (40 mg total) by mouth every morning 8 Active aspirin 81 mg tabletIndicati ons:prevention of thrombosis Take 1 tablet (81 mg total) by mouth nightly 0 Active acetaminophen (TYLENOL ARTHRITIS PAIN ORAL)Indicatio ns:PAIN Take 1 tablet by mouth as needed Active hydroCHLOROthi azide (HYDRODIURIL) 25 mg tablet Take 1 tablet by mouth once daily 90 tablet 3 4 Active cloNIDine (CATAPRES) 0.1 mg tablet TAKE 1 TABLET BY MOUTH THREE TIMES DAILY 270 tablet 3 5 Active labetaloL (NORMODYNE,TRA NDATE) 200 mg tablet TAKE 2 TABLETS BY MOUTH ONCE DAILY IN THE MORNING AND 1 ONCE DAILY IN THE EVENING AND 2 ONCE DAILY AT BEDTIME 450 tablet 3 5 Active omeprazole (PriLOSEC) 40 mg capsule Take 40 mg by mouth daily 8 09/23/19 21 Discontinued hydrALAZINE (APRESOLINE) 25 mg tablet Take 0.5 tablets (12.5 mg total) by mouth 2 (two) times a day 90 tablet 3 1 04/14/20 21 Discontinued Active Problems Problem Noted Date Diagnosed Date Elective replacement indicat ed for cardiac pacemaker battery at end of lifespan 05/23/2023 Murmur, heart 03/17/2020 CHB (complete heart block) 12/21/2018 Assessment & Plan (04/17/2024 2:53 PM CDT): Complete heart block treated with dual chamber pacemaker [address] Medeiros, generator change 06/17/2023 - Dr. Nielsen High ventricular pacing burden, euvolemic on exam without indications of pacemaker mediated cardiomyopathy, LVEF normal 2020 Assessment & Plan (04/19/2023 3:03 PM CDT): Complete heart block treated with dual chamber pacemaker 2009 ACCOUNTS PAYABLE OR RECEIVABLE CLERK 100%, euvolemic on exam without indications of pacemaker mediated cardiomyopathy, LVEF normal 2020 Presence of cardiac pacemaker 11/21/2013 Assessment & Plan (04/17/2024 2:19 PM CDT): Dual chamber pacemaker is functioning appropriately as programmed Lead impedances, sensing, and thresholds are stable No programming changes Continue remote monitoring quarterly Follow up in 1 year for device check Assessment & Plan (04/19/2023 3:04 PM CDT): Dual chamber pacemaker is functioning appropriately as programmed Lead impedances, sensing, and thresholds are stable No programming changes Pacemaker is nearing CHRIS ~4 months Remote monitoring monthly until generator change Dissection of aorta 01/04/2011 Hypertension 01/04/2011 Encounters Date Type Department Care Team Description 01/21/[address] [facility] Medicine Cardiology [address] [facility] [address] [place] [address] Ehsan Nielsen MD PhD from Last 3 Months Surgical History Surgery Date Site/Laterality Comments CARDIAC PACEMAKER PLACEMENT 07/22/2010 KNEE ARTHROPLASTY 12/22/2007 Left CAROTID ARTERY - SUBCLAVIAN ARTERY BYPASS GRAFT 2010 Left Medical History Medical History Date Comments CHB (complete heart block) Family History Medical History Relation Name Comments Atrial fibrillation Brother Family h istory of atrial fibrillation - (Added by TW Conv) Anesthesia problems Neg Hx Relation Name Status Comments Brother Social History Tobacco Use Types Packs/Day Years Used Date Smoking Tobacco: Never Smokeless Tobacco: Never AUDIT-C Answer Date Recorded Q1: How often do you have a drink containing alc ohol? Never 06/17/2023 Average Number of Drinks Not on file 023 Q3: How often do you have si x or more drinks on one occasion? Never 06/17/2023 Personal Safety Answer Date Recorded Getting School Help Needed Not on file 06/17 Sex and Gender Information Value Date Recorded Sex Assigned at Not on file Legal Sex Male 1:40 AM LOGISTICS ANALYTICS MANAGER Gender Identity Male 10/07/2021 11:24 AM LOGISTICS ANALYTICS MANAGER Sexual Orientation Straight 10/07/2021 11 :24 AM LOGISTICS ANALYTICS MANAGER Obstetrics History Last Filed Vital Signs Vital Sign Reading Time Taken Comments Blood Pressure 131/87 05/15/2024 1:41 PM CDT Pulse 82 05/15/2024 1:41 PM CDT Temperature 36.6 C (97.9 F) 06/17/2023 12:30 PM CDT Respiratory Rate 14 06/17/2023 3:50 PM CDT Oxygen Saturation 95% 05/15/2024 1:41 PM CDT Inhaled Oxygen Concentration - - Weight 97.2 kg (214 lb 3.2 oz) 05/15/2024 1:41 P M CDT Height 172.7 cm (5' 8) 05/15/2024 1:41 PM CDT Body Mass Index 32.57 05/15/2024 1:41 PM CDT Plan of Treatment Health Maintenance Due Date Last Done Comments Depression Screening 1943 Fall Risk Assessment 1943 Hepatitis B Screening 1961 Zoster Vaccine (1 of 2) 1993 Well Visit 65+ 2008 Pneumococcal vaccine 65+ (2 of 2 - PCV) 06/02/2018 06/02/2017 Covid-19 Vaccine (2023-2 5 season) 2024 07/01/2021, 11/14/2020, 10/24/2020 Influenza Vaccine (#1) 2025 , 06/11/2020, 05/30/2018, Additional history exists DTaP/Tdap/Td Vaccine (2 - Td or Tdap) 08/29/2028 08/29/2018 Medical Devices Implanted Type Area Patient Care Manager Device Identifier Shelf Expiration Date Model / Serial / Lot Pacemaker Pacemaker Heart [employer] Miriam S Mri Surescan 50.8x46.6mm 2 Chamber 7.4mm Pacemaker 22.5gm [id number] - [id number] - [id number] Implanted:Qty: 1 on 06/17/2023 by Ehsan Nielsen MD PhD at [facility] Pacemaker [employer] 11/02/2024 [id number] / [id number] / Procedures Procedure Name Priority Date/Time Associated Diagnosis Comments DEVICE CHECK - REMOTE Routine 01/21/2025 5:13 AM CDT from Last 3 Months Results * DEVICE CHECK - REMOTE (01/21/2025 5:13 AM CDT) Anatomical Region Laterality Modality Other 01/21/2025 5:13 AM CDT Narrative 03/19/2025 8:35 PM CDT Interpretation Summary: Battery and Leads (BL) Normal parameters noted on battery and lead(s) --- 7.5 yrs remaining longevity (implanted 2022). Lead impedance, threshold, and RA sensing trends stable and appropriate. No short V-V intervals. Presenting Rhythm (MO) Atrial Pacing-Ventricular Pacing (AP-ACCOUNTS PAYABLE OR RECEIVABLE CLERK) --- AP/ACCOUNTS PAYABLE OR RECEIVABLE CLERK 60 bpm. Arrhythmic events (AE) No new arrhythmic events in monitoring period --- Since 10/23/24: No AHR or VHR episodes. 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 Lead impedance, threshold, and RA sensingtrends stable and appropriate. No short V-V intervals. Presenting Rhythm (MO) Atrial Pacing-Ventricular Pacing (AP-ACCOUNTS PAYABLE OR RECEIVABLE CLERK) --- AP/ACCOUNTS PAYABLE OR RECEIVABLE CLERK 60 bpm. Arrhythmic events (AE) No new arrhythmic events in monitoring period --- Since 10/23/24: No AHRor VHR episodes. 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
--- OUTSIDE RECORDS SUMMARY | 2025-04-19 12:50 | XMS_ITS | Encounter Summary ---
Author Organization [facility] Address [address] [place] [address] Phone Care Team Providers Care Petroleum Inspector Name Role Phone Macario Dai MD Primary Care Provider [phone] Encounter Details Date Type Department Care Team (Late st Contact Info) Description 12/15/2016 Orders Only [facility] CLIN[facility] ProviderHilda MD [address] [place] [address] Social History Tobacco Use Types Packs/Day Years Used Date Smoking Tobacco: Never Assessed Sex and Gender Information Value Date Recorded Sex Assigned at Not on file Legal Sex Male 1:40 AM RAG BOILER Gender Identity Male 10/07/2021 11:24 AM RAG BOILER Sexual Orientation Straight 10/07/2021 11 :24 AM RAG BOILER documented as of this encounter Plan of Treatment Not on file documented as of this encounter Procedures Procedure Name Priority Date/Time Associated Diagnosis Comments CARDIOLOGY REPORT 12/15/2016 documented in this encounter Results * CARDIOLOGY REPORT (12/15/2016) Anatomical Region Laterality Modality Other Narrative 12/15/2016 Ordered by an unspecified provider. us Historical Provider [facility] C[facility] SERVICES RHIANNON MELÉNDEZ Final Result documented in this encounter Visit Diagnoses Not on filedocumented in this encounter Care Teams Petroleum Inspector Relationship Specialty Start Date End Date Macario Dai MD PCP - General 11/09/16 documented as of this encounter
--- OUTSIDE RECORDS SUMMARY | 2025-04-19 12:50 | XMS_ITS | Encounter Summary ---
Author Organization [facility] Address [address] [place] [address] Phone Care Team Providers Care Strip Machine Operator Name Role Phone Macario Dai MD Primary Care Provider [phone] Encounter Details Date Type Department Care Team (Late st Contact Info) Description 09/30/2014 Orders Only [facility] CAR CLINCONV ProviderHilda MD [address] [place] [address] Social History Tobacco Use Types Packs/Day Years Used Date Smoking Tobacco: Never Assessed Sex and Gender Information Value Date Recorded Sex Assigned at Not on file Legal Sex Male 1:40 AM LABORER OPERATOR Gender Identity Male 10/07/2021 11:24 AM LABORER OPERATOR Sexual Orientation Straight 10/07/2021 11 :24 AM LABORER OPERATOR documented as of this encounter Plan of Treatment Not on file documented as of this encounter Procedures Procedure Name Priority Date/Time Associated Diagnosis Comments CARDIOLOGY REPORT 09/30/2014 documented in this encounter Results * CARDIOLOGY REPORT (09/30/2014) Anatomical Region Laterality Modality Other Narrative 09/30/2014 Ordered by an unspecified provider. us Historical Provider [facility] CARDIAC SERVICES RHIANNON MELÉNDEZ Final Result documented in this encounter Visit Diagnoses Not on filedocumented in this encounter Care Teams Strip Machine Operator Relationship Specialty Start Date End Date Macario Dai MD PCP - General 11/09/16 documented as of this encounter
--- OUTSIDE RECORDS SUMMARY | 2025-04-19 12:50 | XMS_ITS | Encounter Summary ---
Author Organization [facility] [employer] [facility] Address [address] [place] [address] Phone Care Team Providers Care Scudding Inspector Name Role Phone Macario Dai MD Primary Care Provider [phone] Encounter Details Date Type Department Care Team (Late st Contact Info) Description 12/10/2015 Orders Only [facility] CAR CLINCONV ProviderHilda MD [address] [place] [address] Social History Tobacco Use Types Packs/Day Years Used Date Smoking Tobacco: Never Assessed Sex and Gender Information Value Date Recorded Sex Assigned at Not on file Legal Sex Male 1:40 AM DIELECTRIC MACHINE OPERATOR Gender Identity Male 10/07/2021 11:24 AM DIELECTRIC MACHINE OPERATOR Sexual Orientation Straight 10/07/2021 11 :24 AM DIELECTRIC MACHINE OPERATOR documented as of this encounter Plan of Treatment Not on file documented as of this encounter Procedures Procedure Name Priority Date/Time Associated Diagnosis Comments CARDIOLOGY REPORT 12/10/2015 documented in this encounter Results * CARDIOLOGY REPORT (12/10/2015) Anatomical Region Laterality Modality Other Narrative 12/10/2015 Ordered by an unspecified provider. us Historical Provider CV CARDIAC SERVICES RHIANNON MELÉNDEZ Final Result documented in this encounter Visit Diagnoses Not on filedocumented in this encounter Care Teams Scudding Inspector Relationship Specialty Start Date End Date Macario Dai MD PCP - General 11/09/16 documented as of this encounter
--- OUTSIDE RECORDS SUMMARY | 2025-04-19 12:50 | XMS_ITS | Encounter Summary ---
Author Organization [facility] [employer] [facility] Address [address] [place] [address] Phone Care Team Providers Care Rn Quality Name Role Phone Macario Dai MD Primary Care Provider [phone] Encounter Details Date Type Department Care Team (Late st Contact Info) Description 05/28/2014 Orders Only [facility] CAR CLINCONV ProviderHilda MD [address] [place] [address] Social History Tobacco Use Types Packs/Day Years Used Date Smoking Tobacco: Never Assessed Sex and Gender Information Value Date Recorded Sex Assigned at Not on file Legal Sex Male 1:40 AM MANAGER PSYCHIATRY Gender Identity Male 10/07/2021 11:24 AM MANAGER PSYCHIATRY Sexual Orientation Straight 10/07/2021 11 :24 AM MANAGER PSYCHIATRY documented as of this encounter Plan of Treatment Not on file documented as of this encounter Procedures Procedure Name Priority Date/Time Associated Diagnosis Comments CARDIOLOGY REPORT 05/28/2014 documented in this encounter Results * CARDIOLOGY REPORT (05/28/2014) Anatomical Region Laterality Modality Other Narrative 05/28/2014 Ordered by an unspecified provider. us Historical Provider CV CARDIAC SERVICES RHIANNON MELÉNDEZ Final Result documented in this encounter Visit Diagnoses Not on filedocumented in this encounter Care Teams Rn Quality Relationship Specialty Start Date End Date Macario Dai MD PCP - General 11/09/16 documented as of this encounter
--- OUTSIDE RECORDS SUMMARY | 2025-04-19 12:50 | XMS_ITS | Encounter Summary ---
Author Organization [facility] [facility] Address [address] [place] [address] Phone Care Team Providers Care Proposal Rep Name Role Phone Macario Dai MD Primary Care Provider Encounter Details Date Type Department Care Team (Late st Contact Info) Description 11/28/2014 Orders Only [facility] CAR CLINCONV ProviderHilda MD [address] [place] [address] Social History Tobacco Use Types Packs/Day Years Used Date Smoking Tobacco: Never Assessed Sex and Gender Information Value Date Recorded Sex Assigned at Not on file Legal Sex Male 1:40 AM BUSINESS SUPERVISOR Gender Identity Male 10/07/2021 11:24 AM BUSINESS SUPERVISOR Sexual Orientation Straight 10/07/2021 11 :24 AM BUSINESS SUPERVISOR documented as of this encounter Plan of Treatment Not on file documented as of this encounter Procedures Procedure Name Priority Date/Time Associated Diagnosis Comments CARDIOLOGY REPORT 11/28/2014 documented in this encounter Results * CARDIOLOGY REPORT (11/28/2014) Anatomical Region Laterality Modality Other Narrative 11/28/2014 Ordered by an unspecified provider. us Historical Provider CV CARDIAC SERVICES RHIANNON MELÉNDEZ Final Result documented in this encounter Visit Diagnoses Not on filedocumented in this encounter Care Teams Proposal Rep Relationship Specialty Start Date End Date Macario Dai MD PCP - General 11/09/16 documented as of this encounter
--- OUTSIDE RECORDS SUMMARY | 2025-04-19 12:50 | XMS_ITS | Clinical Summary ---
Author Organization [facility] Address [address] [place] [address] Care Team Providers Care Pharmaceutical Salesperson Name Role Phone Unavailable Primary Care Provider Unavailabl e Social History Tobacco Use Types Packs/Day Years Used Date Smoking Tobacco: Never Assessed Sex and Gender Information Value Date Recorded Sex Assigned at Not on file Legal Sex Male 4:38 PM CDT Gender Identity Not on file Sexual Orientation Not on file Plan of Treatment Health Maintenance Due Date Last Done Comments DTaP, Tdap and Td Vaccines ( 1 - Tdap) 1962 Pneumococcal Vaccine: 50+ Ye ars (1 of 1 - PCV) 1993 Zoster Vaccines (1 of 2) 1993 RSV Immunization or 60+ Years (1 - 1-dose 75+ series) 2018 COVID-19 Vaccine ( - 2023-2 5 season) 2024 Meningococcal B Vaccine Aged Out No l onger eligible based on patient's age to complete this topic Meningococcal Vaccine Aged Out No kaylee ta eligible based on patient's age to complete this topic RSV Immunizations Under 20 Months Aged Out No longer eligible based on patient's age to complete this topic
--- NOTE | 2025-04-19 13:57 | ED.ABDPAIN ---
HPI - Abdominal Pain General Chief Complaint: Abdominal Pain Stated Complaint: sour stomach, belly ache for 2 weeks Time Seen by Provider: 04/19/25 13:52 Source: patient Mode of arrival: ambulatory Limitations: no limitations History of Present Illness HPI narrative: 79 YEARS OLD WHITE MALE DROVE HIMSELF TO THE EMERGENCY ROOM FROM HOME COMPLAINING OF LOWER ABDOMINAL PAIN, SQUEEZING, SHARP, INTERMITTENT FOR THE LAST 2 WEEKS ASSOCIATED WITH DIARRHEA MAXIMUM TWICE A DAY EVERY 3-4 DAYS. PATIENT DENIES RADIATION OF PAIN, FEVER, CHILLS, NAUSEA, VOMITING, CHEST PAIN, SHORTNESS OF BREATH OR BACK PAIN. THE PATIENT IS TELLING ME THAT HE HAVE HISTORY OF THORACIC AORTIC DISSECTION REPAIRED 2009 AT [facility], PATIENT HAVE ANNUAL CT SCAN AND WAS TOLD THAT THE LAST CT SCAN LOOKS OKAY AND SIMILAR TO THE PAST. CURRENTLY PATIENT IS ASYMPTOMATIC Related Data Home Medications ?Medication ?Instructions ?Recorded ?Confirmed ?Last Taken ?Type aspirin 81 mg tablet,delayed 81 mg PO DAILY 11/13/19 09/27/24 Unknown History release (Adult Low Dose Aspirin) clonidine HCl 0.1 mg tablet 0.1 mg PO TID 11/13/19 09/27/24 Unknown History hydrochlorothiazide 25 mg tablet 25 mg PO DAILY 11/13/19 09/27/24 Unknown History labetalol 200 mg tablet 200 mg PO TID 11/13/19 09/27/24 11/19/22 09:30 History cholecalciferol (vitamin D3) 50 50 mcg PO DAILY 11/15/22 09/27/24 Unknown History mcg (2,000 unit) tablet (Vitamin D3) diphenhydramine HCl 50 mg tablet 50 mg PO DAILY 11/15/22 09/27/24 Unknown History Allergies Allergy/AdvReac Type Severity Reaction Status Date / Time No Known Allergies Allergy Verified 04/19/25 12:53 Review of Systems Review of Systems: All systems reviewed & are unremarkable except as noted in HPI and below PMFSH Past Medical History Medical History Pharyngitis Pacemaker Colonoscopy planned Hernia Aortic dissection Claudication of upper extremity H/O cardiac pacemaker Chronic low back pain Traumatic tear of thoracic aorta History of squamous cell carcinoma History of actinic keratosis Skin cancer screening JONI (obstructive sleep apnea) Enlarged prostate without lower urinary tract symptoms (luts) Essential (primary) hypertension Mixed hyperlipidemia Vitamin D deficiency, unspecified Surgical History Surgical History History of knee replacement Family History Family History Mother Hypertension Father Patient's father is Aortic aneurysm Sibling Pacemaker Sibling COPD (chronic obstructive pulmonary disease) Tobacco abuse Social History Social History Smoking status: Never smoker Second hand tobacco smoke exposure: No Alcohol intake: never Substance use: never Substance use type: does not use Do You Feel Safe in your Home?: Yes Lack of Transportation: No Lack of Food: Never True Current Housing: I Have Housing Concerned About Future Housing: No Difficulty Paying Gas/Electric Bills: No Difficulty Paying for Meds: No Currently Unemployed: No Education: High School Diploma/GED Difficulty w/ Childcare or Family Care: No Living arrangements: with family Occupation/Education: retired 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 MUSCULOSKELETAL: NORMAL RANGE OF MOTION, NONTENDER BACK NEUROLOGIC: ALERT AND ORIENTED ?3, RAIL DOWELING MACHINE OPERATOR IS NORMAL TESTED, NO GROSS MOTOR DEFICIT Course Consultations Consultation #1: DR DELVALLE, VASCULAR SURGEON AT [facility] REPORT THAT PATIENT ANEURYSMAL SIZE EXACTLY THE SAME OVER THE LAST 6 YEARS. WOULD BE OKAY SYNDROME HOME. Date: 04/19/25 Time: 21:34 Vital Signs Vital signs: Vital Signs Temperature 36.8 C 04/19/25 13:05 Pulse Rate 73 04/19/25 13:05 Respiratory Rate 20 04/19/25 13:05 Blood Pressure 97/59 L 04/19/25 13:05 Pulse Oximetry 98 04/19/25 13:05 Temperature 36.8 C 04/19/25 13:05 Pulse Rate 65 04/19/25 19:16 Respiratory Rate 18 04/19/25 19:16 Blood Pressure 141/95 H 04/19/25 19:16 Pulse Oximetry 98 04/19/25 19:16 MDM - Abdominal Pain MDM Narrative Medical decision making narrative: PATIENT CAME TO THE ED WITH INTERMITTENT ABDOMINAL PAIN AND INTERMITTENT DIARRHEA VITAL SIGNS STABLE PHYSICAL EXAMINATION IS UNREMARKABLE DIFFERENTIAL DIAGNOSIS INCLUDE COLITIS, ENTERITIS, DIVERTICULITIS, URINARY TRACT INFECTION, STRESS RELATED SYMPTOMS, ELECTROLYTE IMBALANCE, DEHYDRATION BLOOD WORKUP INCLUDES CBC, CMP, LIPASE SHOWED SODIUM 130, OTHERWISE WITHIN NORMAL LIMIT URINALYSIS SHOWING PROTEINURIA OTHERWISE WITHIN NORMAL LIMIT PATIENT TESTED NEGATIVE FOR COVID FLU AND RSV CHEST X-RAY SHOWED MILD CHF CT ABDOMEN AND PELVIS WITH IV CONTRAST SHOWED CHRONIC APPEARING DISSECTION, ANEURYSMAL DILATATION OF THE AORTA AND COMMON ILIAC ARTERIES DR. DELVALLE, THE VASCULAR SURGEON ON-CALL AT [facility] TELLING ME THAT PATIENT ABDOMINAL ANEURYSM EXACTLY THE SAME FOR THE LAST 6 YEARS. AND HE IS ALREADY SCHEDULED TO SEE HIS VICE PRESIDENT REGULATORY NEXT MONTH FOR CTA TO EVALUATE HIS ANEURYSM.. DIAGNOSIS ABDOMINAL PAIN OF UNKNOWN ETIOLOGY Differential Diagnosis Differential diagnosis: Likely other ( ABOVE) Lab Data 04/19/25 14:10 04/19/25 14:10 Labs: Lab Results 04/19/25 04/19/25 04/19/25 Range/Units 14:10 14:30 16:09 WBC 7.7 (4.5-10.0) K/mm3 RBC 4.25 L (4.6-6.20) M/mm3 Hgb 13.9 L (14.0-18.0) g/dL Hct 40.4 L (42.0-52.0) % MCV 95.1 (80-100) fl MCH 32.7 (26-34) pg MCHC 34.4 (32-36) g/dl RDW 12.6 (11.5-14.5) % Plt Count 105 L (150-375) k/mm3 MPV 9.0 (7.4-10.4) fl Immature Gran % (Auto) 0.4 (0-0.5) % Neut % (Auto) 81.6 H (45.5-73.1) % Lymph % (Auto) 7.0 L (18.3-44.2) % [place] % (Auto) 7.2 (2.6-8.5) % Eos % (Auto) 3.1 (0-4.4) % Baso % (Auto) 0.7 (0.2-1.2) % Lymph # (Auto) 0.54 L (0.9-3.2) K/mm3 [place] # (Auto) 0.6 (0.1-0.6) K/mm3 Eos # (Auto) 0.2 (0-0.3) K/mm3 Baso # (Auto) 0.1 (0.0-0.1) K/mm3 Abs Immat Gran (auto) 0.03 (0.00-0.031) K/mm3 Absolute Neuts (auto) 6.3 (1.3-6.7) K/mm3 Absolute Nucleated RBC 0.000 (0.0-0.012) K/mm3 Nucleated RBC % 0.0 (0.0-0.2) % % Immature Plt Fraction 1.5 (0.9-11.2) % PT 15.3 H (11.1-14.7) Seconds INR 1.2 APTT 34.9 (22.3-36.8) Seconds Sodium 130 L (137-145) mmol/L Potassium 3.9 (3.4-5.0) mmol/L Chloride 97 L (98-107) mmol/L Carbon Dioxide 28 (22-30) mmol/L Anion Gap 5 (4-12) mmol/L BUN 20 (9-20) mg/dL Creatinine 1.21 (0.7-1.3) mg/dL Estim Creat Clear Calc 39 ml/min Estimated GFR 58 L (59 - ) Glucose 113 H (65-110) mg/dL Lactic Acid 1.3 (0.7-2.0) mmol/L Calcium 9.5 (8.4-10.2) mg/dL Total Bilirubin 1.0 (0.2-1.3) mg/dL AST 34 (17-59) U/L ALT 18 (6-50) U/L Alkaline Phosphatase 63 (38-126) U/L Total Protein 6.2 L (6.3-8.2) g/dL Albumin 3.6 (3.5-5.1) g/dL Lipase 36 (23-300) U/L Urine Color Yellow (Yellow) Urine Appearance Cloudy H (Clear) Urine pH 7.5 (5.0-9.0) Ur Specific [place] 1.021 (1.001-1.035) Urine Protein 3+ H (Negative) mg/dL Urine Glucose (UA) Negative (Negative) mg/dL Urine Ketones Negative (Negative) mg/dL Ur Blood (Man) Trace (Negative) Urine Nitrate Negative (Negative) Urine Bilirubin Negative (Negative) Urine Urobilinogen 0.2 (<2.0) mg/dL Leukocyte Esterase Rfl Negative (Negative) ISIS/UL Urine RBC 3-5 H (0-2) /hpf Urine WBC 0-5 (0-3) /hpf Ur Squamous Epith Cells None seen (Few) /hpf Urine Bacteria None seen /hpf Urine Casts 3-5 Influenza A (RT-PCR) Negative (Negative) Influenza B (RT-PCR) Negative (Negative) RSV (RT-PCR) Negative (Negative) SARS-CoV-2 RNA (RT-PCR) Negative (Negative) Imaging Data Radiologist's impression: ITS Impressions Chest X-Ray 04/19/25 14:30 Impression: Mild CHF Abdomen/Pelvis CT 04/19/25 15:00 IMPRESSION: 1. Chronic appearing dissection detailed above. Aneurysmal dilatation of the aorta and the common iliac arteries which accounting for differences in technique appears slightly progressed compared to the previous exam. 2. Incidental findings above Discharge Plan Discharge Clinical Impression: Abdominal pain Patient Disposition: Home Condition: Stable Instructions: Abdominal Pain (ED) Additional Instructions: RETURN IF SYMPTOMS ARE WORSENING , CALL YOUR FAMILY PHYSICIAN FOR APPOINTMENT, TAKE TYLENOL NEEDED FOR ACHES AND PAIN, CONTINUE HOME MEDICATIONS. Patient Language: Mongolian Prescriptions: No Action aspirin [Adult Low Dose Aspirin] 81 mg tablet,delayed release (DR/EC) 81 mg PO DAILY clonidine HCl 0.1 mg tablet 0.1 mg PO TID hydrochlorothiazide 25 mg tablet 25 mg PO DAILY labetalol 200 mg tablet 200 mg PO TID diphenhydramine HCl 50 mg Tablet 50 mg PO DAILY cholecalciferol (vitamin D3) [Vitamin D3] 50 mcg (2,000 unit) Tablet 50 mcg PO DAILY rosuvastatin [Crestor] 40 mg tablet 40 mg PO DAILY Qty: 90 3RF eszopiclone [Lunesta] 2 mg tablet 2 mg PO QHS Qty: 30 2RF Follow-up/Referrals: Macario Dai MD [Primary Care Provider, Family Practice]
[2025-04-19] MEDS: SODIUM CHLORIDE 0.9% IV 1,000 ML 999 ML IV CONT (14:09)
--- OUTSIDE RECORDS SUMMARY | 2025-04-19 14:18 | XMS_ITS | Clinical Summary ---
Author Organization [facility] Address [address] [place] [address] Care Team Providers Care Anatomical Embalmer Name Role Phone Unavailable Primary Care Provider [...]
--- OUTSIDE RECORDS SUMMARY | 2025-04-19 14:18 | XMS_ITS | Encounter Summary ---
Author Organization [facility] [employer] [facility] Address [address] [place] [address] Phone Care Team Providers Care Tanker Service Attendant Name Role Phone Macario Dai MD Primary Care Provider [phone] Encounter Details Date Type Department Care Team (Late st Contact Info) Description 12/21/2017 Orders Only [facility] CAR CLINCONV ProviderHilda MD [address] [place] [id number] Social History Tobacco Use Types Packs/Day Years Used Date Smoking Tobacco: Never Sex and Gender Information Value Date Recorded Sex Assigned at Not on file Legal Sex Male 1:40 AM CASHIER PAYMENTS RECEIVED Gender Identity Male 10/07/2021 11:24 AM CASHIER PAYMENTS RECEIVED Sexual Orientation Straight 10/07/2021 11 :24 AM CASHIER PAYMENTS RECEIVED documented as of this encounter Plan of [...] on filedocumented in this encounter Care Teams Tanker Service Attendant Relationship Specialty Start Date End Date Macario Dai MD PCP - General 11/09/16 documented as of this encounter
--- OUTSIDE RECORDS SUMMARY | 2025-04-19 14:19 | XMS_ITS | Encounter Summary ---
Author Organization [facility] [employer] [facility] Address [address] [place] [address] Phone Care Team Providers Care Voucher Clerk Name Role Phone Macario Dai MD Primary Care Provider [phone] Encounter Details Date Type Department Care Team (Late st Contact Info) Description 09/30/2014 Orders Only [facility] CLINCON[facility] ProviderHilda MD [address] [place] [address] Social History Tobacco Use Types Packs/Day Years Used Date Smoking Tobacco: Never Assessed Sex and Gender Information Value Date Recorded Sex Assigned at Not on file Legal Sex Male 1:40 AM STUDY DIRECTOR Gender Identity Male 10/07/2021 11:24 AM STUDY DIRECTOR Sexual Orientation Straight 10/07/2021 11 :24 AM STUDY DIRECTOR documented as of this encounter Plan of [...] on filedocumented in this encounter Care Teams Voucher Clerk Relationship Specialty Start Date End Date Macario Dai MD PCP - General 11/09/16 documented as of this encounter
--- OUTSIDE RECORDS SUMMARY | 2025-04-19 14:19 | XMS_ITS | Encounter Summary ---
Author Organization [facility] [employer] [facility] Address [address] [place] [address] Phone Care Team Providers Care Sales Representative Rural Power Name Role Phone Macario Dai MD Primary Care Provider [phone] Encounter Details Date Type Department Care Team (Late st Contact Info) Description 12/10/2015 Orders Only [facility] CAR CLINCONV ProviderHilda MD [address] [place] [address] Social History Tobacco Use Types Packs/Day Years Used Date Smoking Tobacco: Never Assessed Sex and Gender Information Value Date Recorded Sex Assigned at Not on file Legal Sex Male 1:40 AM OIL PUMPER Gender Identity Male 10/07/2021 11:24 AM OIL PUMPER Sexual Orientation Straight 10/07/2021 11 :24 AM OIL PUMPER documented as of this encounter Plan of [...] on filedocumented in this encounter Care Teams Sales Representative Rural Power Relationship Specialty Start Date End Date Macario Dai MD PCP - General 11/09/16 documented as of this encounter
--- OUTSIDE RECORDS SUMMARY | 2025-04-19 14:19 | XMS_ITS | Encounter Summary ---
Author Organization [facility] [employer] [facility] Address [address] [place] [address] Phone Care Team Providers Care Street Light Servicer Supervisor Name Role Phone Macario Dai MD Primary Care Provider [phone] Encounter Details Date Type Department Care Team (Late st Contact Info) Description 12/15/2016 Orders Only [facility] CAR CLINCONV ProviderHilda MD [address] [place] [address] Social History Tobacco Use Types Packs/Day Years Used Date Smoking Tobacco: Never Assessed Sex and Gender Information Value Date Recorded Sex Assigned at Not on file Legal Sex Male 1:40 AM FLUME MAKER Gender Identity Male 10/07/2021 11:24 AM FLUME MAKER Sexual Orientation Straight 10/07/2021 11 :24 AM FLUME MAKER documented as of this encounter Plan of [...] on filedocumented in this encounter Care Teams Street Light Servicer Supervisor Relationship Specialty Start Date End Date Macario Dai MD PCP - General 11/09/16 documented as of this encounter
--- OUTSIDE RECORDS SUMMARY | 2025-04-19 14:19 | XMS_ITS | Clinical Summary ---
Author Organization [facility] Address [address] [place] [address] Care Team Providers Care Wader Boot Top Assembler Name Role Phone Macario Dai MD Primary Care Provider Allergies No known active allergies Medications cholecalcifero [...] block treated with dual chamber pacemaker 2009 INK MAKER 100%, euvolemic on exam without indications of [...] Department Care Team Description 01/21/2025 Orders Only [facility] Medicine Cardiology [address] [place] [address] Ehsan Nielsen MD PhD from Last 3 [...] on file Legal Sex Male 1:40 AM EXPORT SALES ASSISTANT Gender Identity Male 10/07/2021 11:24 AM EXPORT SALES ASSISTANT Sexual Orientation Straight 10/07/2021 11 :24 AM EXPORT SALES ASSISTANT Obstetrics History Last Filed Vital Signs Vital [...] 08/29/2028 08/29/2018 Medical Devices Implanted Type Area Tanker Driver Device Identifier Shelf Expiration Date Model / Serial / Lot Pacemaker Pacemaker Heart [employer] Miriam S Mri Surescan 50.8x46.6mm 2 Chamber 7.4mm Pacemaker 22.5gm [id number] - [id number] - [id number] Implanted:Qty: 1 on 06/17/2023 by Ehsan Nielsen MD PhD at [facility] Pacemaker [employer] 11/02/2024 [id number] / [id number] / Procedures Procedure Name Priority Date/Time Associated [...] appropriate. No short V-V intervals. Presenting Rhythm (CA) Atrial Pacing-Ventricular Pacing (AP-INK MAKER) --- AP/INK MAKER 60 bpm. Arrhythmic events (AE) No new [...] appropriate. No short V-V intervals. Presenting Rhythm (CA) Atrial Pacing-Ventricular Pacing (AP-INK MAKER) --- AP/INK MAKER 60 bpm. Arrhythmic events (AE) No new arrhythmic events in monitoring period --- Since 10/23/24: No AHRor VHR episodes. 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
--- OUTSIDE RECORDS SUMMARY | 2025-04-19 14:19 | XMS_ITS | Encounter Summary ---
Author Organization [facility] [employer] [facility] Address [address] [place] [address] Phone Care Team Providers Care Licensed Nurse Practitioner Name Role Phone Macario Dai MD Primary Care Provider [phone] Encounter Details Date Type Department Care Team (Late st Contact Info) Description 11/28/2014 Orders Only [facility] CAR CLINCONV ProviderHilda MD [address] [place] [address] Social History Tobacco Use Types Packs/Day Years Used Date Smoking Tobacco: Never Assessed Sex and Gender Information Value Date Recorded Sex Assigned at Not on file Legal Sex Male 1:40 AM TRAVEL INFORMATION CENTER SUPERVISOR Gender Identity Male 10/07/2021 11:24 AM TRAVEL INFORMATION CENTER SUPERVISOR Sexual Orientation Straight 10/07/2021 11 :24 AM TRAVEL INFORMATION CENTER SUPERVISOR documented as of this encounter Plan [...] on filedocumented in this encounter Care Teams Licensed Nurse Practitioner Relationship Specialty Start Date End Date Macario Dai MD PCP - General 11/09/16 documented as of this encounter
--- OUTSIDE RECORDS SUMMARY | 2025-04-19 14:19 | XMS_ITS | Encounter Summary ---
Author Organization [facility] [employer] [facility] Address [address] [place] [address] Phone Care Team Providers Care Dog Or Animal Sitter Name Role Phone Macario Dai MD Primary Care Provider [phone] Encounter Details Date Type Department Care Team (Late st Contact Info) Description 05/28/2014 Orders Only [facility] CLINCON[facility] ProviderHilda MD [address] [place] [address] Social History Tobacco Use Types Packs/Day Years Used Date Smoking Tobacco: Never Assessed Sex and Gender Information Value Date Recorded Sex Assigned at Not on file Legal Sex Male 1:40 AM SOLE LAYER HAND Gender Identity Male 10/07/2021 11:24 AM SOLE LAYER HAND Sexual Orientation Straight 10/07/2021 11 :24 AM SOLE LAYER HAND documented as of this encounter Plan of [...] on filedocumented in this encounter Care Teams Dog Or Animal Sitter Relationship Specialty Start Date End Date Macario Dai MD PCP - General 11/09/16 documented as of this encounter
--- OUTSIDE RECORDS SUMMARY | 2025-04-19 14:19 | XMS_ITS | Encounter Summary ---
Author Organization [facility] [employer] [facility] Address [address] [place] [address] Phone Care Team Providers Care Certified Credit Counselor Name Role Phone Macario Dai MD Primary Care Provider [phone] Encounter Details Date Type Department Care Team (Late st Contact Info) Description 12/24/2016 Orders Only [facility] CAR CLINCONV Provider, MD Hilda [address] [place] [address] Social History Tobacco Use Types Packs/Day Years Used Date Smoking Tobacco: Never Assessed Sex and Gender Information Value Date Recorded Sex Assigned at Not on file Legal Sex Male 1:40 AM MEDICAL EDUCATION SPECIALIST Gender Identity Male 10/07/2021 11:24 AM MEDICAL EDUCATION SPECIALIST Sexual Orientation Straight 10/07/2021 11 :24 AM MEDICAL EDUCATION SPECIALIST documented as of this encounter Plan of [...] on filedocumented in this encounter Care Teams Certified Credit Counselor Relationship Specialty Start Date End Date Macario Dai MD PCP - General 11/09/16 documented as of this encounter
[2025-04-19 14:20] LABS: Hematocrit 40.4 % (42.0-52.0); Hemoglobin 13.9 g/dL (14.0-18.0); Immature Granulocyte Percent A 0.4 % (0-0.5); Immature Platelet Fraction Pct 1.5 % (0.9-11.2); Lymphocytes Absolute Auto 0.54 K/mm3 (0.9-3.2); Mean Corpuscular HGB Conc 34.4 g/dl (32-36); Mean Corpuscular Hemoglobin 32.7 pg (26-34); Mean Corpuscular Volume 95.1 fl (80-100); Nucleated Red Blood Cells Absolute Auto 0.000 K/mm3 (0.0-0.012); Nucleated Red Blood Cells Perc 0.0 % (0.0-0.2); Platelet Count Result 105 k/mm3 (150-375); Red Blood Count 4.25 M/mm3 (4.6-6.20); White Blood Count 7.7 K/mm3 (4.5-10.0)
[2025-04-19 14:30] LABS: Alanine Aminotransferase 18 U/L (6-50); Albumin Level 3.6 g/dL (3.5-5.1); Alkaline Phosphatase 63 U/L (38-126); Anion Gap 5 mmol/L (4-12); Aspartate Amino Transferase 34 U/L (17-59); Bilirubin,Total 1.0 mg/dL (0.2-1.3); Blood Urea Nitrogen 20 mg/dL (9-20); Calcium 9.5 mg/dL (8.4-10.2); Carbon Dioxide 28 mmol/L (22-30); Chloride 97 mmol/L (98-107); Estimated CRCL calculation 39 ml/min; Estimated Glomerular Filt Rate 58; Glucose 113 mg/dL (65-110); INR 1.2; Lipase 36 U/L (23-300); Potassium 3.9 mmol/L (3.4-5.0); Prothrombin Time 15.3 Seconds (11.1-14.7); Sodium 130 mmol/L (137-145); Total Protein 6.2 g/dL (6.3-8.2)
[2025-04-19 14:31] LABS: Partial Thromboplastin Time 34.9 Seconds (22.3-36.8)
[2025-04-19 15:13] LABS: Influenza A QL RT-PCR Negative (Negative); Influenza B QL RT-PCR Negative (Negative); RSV RNA, RT-PCR Negative (Negative); SARS-CoV-2 RNA PCR Negative (Negative)
[2025-04-19 16:18] LABS: Add Urine Microscopic? YES; Appearance Urine Cloudy (Clear); Glucose Urine UA Negative (Negative); Leukocyte Esterase Ur Negative LEU/UL (Negative); Nitrate Urine Negative (Negative); Specific Grav Ur 1.021 (1.001-1.035)
== END 2025-04-19 22:20 | disposition home or self-care (01) ==
PROVIDERS: Emergency Provider Emergency Medicine; PCP Family Medicine
DX: R10.30 Lower abdominal pain, unspecified (principal); Z20.822 Contact with and (suspected) exposure to COVID-19; I71.20 Thoracic aortic aneurysm, without rupture, unspecified; I71.019 Dissection of thoracic aorta, unspecified; I71.02 Dissection of abdominal aorta; I77.72 Dissection of iliac artery; E78.2 Mixed hyperlipidemia; E55.9 Vitamin D deficiency, unspecified; N40.0 Benign prostatic hyperplasia without lower urinary tract symptoms; G47.33 Obstructive sleep apnea (adult) (pediatric); Z95.0 Presence of cardiac pacemaker; Z96.659 Presence of unspecified artificial knee joint; Z85.828 Personal history of other malignant neoplasm of skin; I50.9 Heart failure, unspecified
CPT/HCPCS: 36415; 71045; 74177; 80053; 81001; 83605; 83690; 85025; 85055; 85610; 85730; 87637; 96360; 99284; J7030; Q9967

== ENCOUNTER 2025-04-24 16:40 | Emergency (ER) | payer MEDICARE, SELFPAY ==
[2025-04-24] VITALS (22 sets, daily range): BP systolic 138–174; BP diastolic 86–113; PULSE 60–78; RESP 11–20; TEMP 36.4; O2SAT 93–100
--- NOTE | ~2025-04-24 | CT_ITS ---
EXAMINATION: CTA chest abdomen pelvis DATE: 04/24/2025 21:58 CDT INDICATION: Lower abdominal pain worsening. TECHNIQUE: Computed tomographic angiography (CTA) of the chest, abdomen, and pelvis was performed without and with 100 mL Omnipaque-350 intravenous contrast. The dose-length product was 644.29 mGy-cm. Maximum intensity projection 3D- reconstructions of the aorta and other arteries were constructed by the technologist on a separate workstation. COMPARISON: CT dated 04/19/2025. FINDINGS: CHEST/ABDOMEN/PELVIS CTA: Elevated left diaphragm. Heart size normal. No evidence for pulmonary embolism. There is an endovascular stents of the aortic arch extending into the descending thoracic aorta. There is a chronic appearing dissection of the aorta. There is aneurysmal dilation of the right common iliac artery. 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 There is mild chronic interstitial lung disease. No endobronchial lesions. No suspicious pulmonary nodules or masses. The liver, spleen, pancreas, adrenal glands and kidneys are unremarkable. Gallbladder is present. Nonobstructive bowel gas pattern. Small mineral free fluid in the pelvis. The proximal abdominal aorta measures 4 x 4 cm without significant change from prior examination. Bladder wall is mildly thickened. Colonic diverticulosis without evidence for diverticulitis. Moderate thoracic and upper lumbar spondylosis. IMPRESSION: 1. Chronic aneurysmal dilation of the thoracic and abdominal aorta with chronic appearing dissection of the abdominal aorta extending into the iliac vessels. 2: Mild bladder wall thickening, suspicious for cystitis in the appropriate clinical setting. Reviewed, dictated and finalized at location [facility]. IMPRESSION: 1. Chronic aneurysmal dilation of the thoracic and abdominal aorta with chronic appearing dissection of the abdominal aorta extending into the iliac vessels. 2: Mild bladder wall thickening, suspicious for cystitis in the appropriate cli nical setting.
--- OUTSIDE RECORDS SUMMARY | 2025-04-24 13:30 | XMS_ITS | Encounter Summary ---
Author Organization [facility] Address [address] [place] [address] Phone Care Team Providers Care Civil Engineering Intern Name Role Phone Macario Dai MD Primary Care Provider [phone] Reason for Referral * Cardiology (Routine) - Authorized Specialty Diagnoses / Procedures Referred By Corina vivas Referred To Contact Diagnoses CHB (complete heart block) Adjustment and management of cardiac pacemaker Procedures DEVICE CHECK - IN OFFICE Ehsan Nielsen MD PhD [address] [facility] [address] [place] [address] Phone: tel: fax: [facility] Advanced Medicine [address]th [place] [address] [place] [address] Phone: tel: fax: Referral ID Status Reason Start Date Expiration Date V isits Requested Visits Authorized [id number] Authorized 04/24/2025 05/24/2026 1 1 Reason for Visit * Cardiology (Routine) - Authorized Specialty Diagnoses / Procedures Referred By Contac t Referred To Contact Diagnoses CHB (complete heart block) Adjustment and management of cardiac pacemaker Procedures DEVICE CHECK - IN OFFICE Ehsan Nielsen MD PhD Phone: tel: fax: [facility] (All Locations) Referral ID Status Reason Start Date Expiration Date V isits Requested Visits Authorized [id number] Authorized 04/17/2024 08/21/2025 12 12 Encounter Details Date Type Department Care Team (Latest Contact Info) Description 04/24/2025 1:30 PM CDT Ancillary Procedure [facility] Medicine Cardiology [address] [facility] 8th [place] [address] [place] [address] CHB (complete heart block) (Primary Dx); Adjustment and management of cardiac pacemaker Social History Tobacco Use Types Packs/Day Years Used Date Smoking Tobacco: Never Smokeless Tobacco: Never AUDIT-C Answer Date Recorded Q1: How often do you have a drink containing alc ohol? Never 06/17/2023 Average Number of Drinks Not on file 023 Q3: How often do you have si x or more drinks on one occasion? Never 06/17/2023 Personal Safety Answer Date Recorded Have you ever been in or are you currently in a harmful physical or emotional relationship or is someone making you feel afraid or unsafe? Denies 06/17/2023 Sex and Gender Information Value Date Recorded Sex Assigned at Not on file Legal Sex Male 1:40 AM WOOD HEEL FLAP TRIMMER Gender Identity Male 10/07/2021 11:24 AM WOOD HEEL FLAP TRIMMER Sexual Orientation Straight 10/07/2021 11 :24 AM WOOD HEEL FLAP TRIMMER documented as of this encounter Plan of Treatment Pending Results Name Type Priority Associated Diagnoses Date /Time DEVICE CHECK - IN OFFICE Cardiac Services Routine CHB (complete heart block) Adjustment and management of cardiac pacemaker 04/24/2025 1:27 PM CDT Scheduled Orders Name Type Priority Associated Diagnoses Orde r Schedule DEVICE CHECK - IN OFFICE Cardiac Services Routine CHB (complete heart block) (HCC) Adjustment and management of cardiac pacemaker Expected: 04/24/2026 (Approximate), Expires: 10/22/2026 documented as of this encounter Visit Diagnoses Diagnosis CHB (complete heart block)- Primary Atrioventricular block, complete Adjustment and management of cardiac pacemaker Fitting and adjustment of cardiac pacemaker documented in this encounter Care Teams Civil Engineering Intern Relationship Specialty Start Date End Date Macario Dai MD PCP - General 11/09/16 documented as of this encounter
--- OUTSIDE RECORDS SUMMARY | 2025-04-24 13:30 | XMS_ITS | Encounter Summary ---
Author Organization [facility] [employer] [facility] Address [address] [place] [address] Phone Care Team Providers Care Commercial Loan Specialist Name Role Phone Macario Dai MD Primary Care Provider Reason for Referral * Cardiology (Routine) - Authorized Specialty Diagnoses / Procedures Referred By Corina vivas Referred To Contact Diagnoses CHB (complete heart block) Adjustment and management of cardiac pacemaker Procedures DEVICE CHECK - IN OFFICE Ehsan Nielsen MD PhD [address] [facility] [address] [place] [address] Phone: tel: fax: [facility] [place] [place] Cardiology [facility] Advanced Medicine 8th [place] [address] [place] [address] Phone: tel: fax: Referral ID Status Reason Start Date Expiration Date V isits Requested Visits Authorized [id number] Authorized 04/24/2025 05/24/2026 1 1 Reason for Visit * Cardiology (Routine) - Authorized Specialty Diagnoses / Procedures Referred By Contac t Referred To Contact Diagnoses CHB (complete heart block) Adjustment and management of cardiac pacemaker Procedures DEVICE CHECK - IN OFFICE Ehsan Nielsen MD PhD Phone: tel: fax: [facility] (All Locations) Referral ID Status Reason Start Date Expiration Date V isits Requested Visits Authorized [id number] Authorized 04/17/2024 08/21/2025 12 12 Encounter Details Date Type Department Care Team (Latest Contact Info) Description 04/24/2025 1:30 PM CDT Ancillary Procedure [facility] Medicine Cardiology [address] [facility] 8th [place] [address] [place] [address] CHB (complete heart block) (Primary Dx); Adjustment [...] on file Legal Sex Male 1:40 AM MAINTENANCE AND ENGINEERING MANAGER Gender Identity Male 10/07/2021 11:24 AM MAINTENANCE AND ENGINEERING MANAGER Sexual Orientation Straight 10/07/2021 11 :24 AM MAINTENANCE AND ENGINEERING MANAGER documented as of this encounter Plan of [...] pacemaker documented in this encounter Care Teams Commercial Loan Specialist Relationship Specialty Start Date End Date Macario Dai MD PCP - General 11/09/16 documented as of this encounter
--- OUTSIDE RECORDS SUMMARY | 2025-04-24 14:00 | XMS_ITS | Encounter Summary ---
Author Organization [facility] Address [address] [place] [address] Phone Care Team Providers Care Rayon Tester Name Role Phone Macario Dai MD Primary Care Provider Reason for Visit * Cardiology (Routine) - Authorized Specialty Diagnoses / Procedures Referred By Contac t Referred To Contact Diagnoses CHB (complete heart block) Adjustment and management of cardiac pacemaker Procedures DEVICE CHECK - IN OFFICE Ehsan Nielsen MD PhD Phone: tel: fax: [facility] (All Locations) Referral ID Status Reason Start Date Expiration Date V isits Requested Visits Authorized [id number] Authorized 04/17/2024 08/21/2025 12 12 Encounter Details Date Type Department Care Team (Late st Contact Info) Description 04/24/2025 2:00 PM CDT Office Visit [facility] Medicine Cardiology [address] [facility] 8th [place] [address] [place] [id number] Ehsan Nielsen MD PhD [address] [facility] [address] [place] [address] CHB (complete heart block) (Primary Dx); Dissection of descending thoracic aorta (HCC) Social History Tobacco Use Types Packs/Day Years [...] on file Legal Sex Male 1:40 AM SUPERVISOR DOCK Gender Identity Male 10/07/2021 11:24 AM SUPERVISOR DOCK Sexual Orientation Straight 10/07/2021 11 :24 AM SUPERVISOR DOCK documented as of this encounter Last Filed Vital Signs Vital Sign Reading Time Taken Comments Blood Pressure 152/84 04/24/2025 1:37 PM CDT Pulse 82 04/24/2025 1:37 PM CDT Temperature - - Respiratory Rate - - Oxygen Saturation 94% 04/24/2025 1:37 PM CDT Inhaled Oxygen Concentration - - Weight 86.9 kg (191 lb 9.6 oz) 04/24/2025 1:37 P M CDT Height 172.7 cm (5' 8) 04/24/2025 1:37 PM CDT Body Mass Index 29.13 04/24/2025 1:37 PM CDT documented in this encounter Progress Notes * Ehsan Nielsen MD PhD - 04/24/2025 2:00 PM CDT Cardiac Electrophysiology Follow-Up I had the pleasure of seeing Jude Weaver (1945) at the [facility] Cardiac Electrophysiology Service on 04/24/2025, in follow- up for Complete heart block. Mr. Weaver is a 79 y.o. man who underwent implant of a dual-chamber Medtronic pacemaker by in 2009. He has done well, without significant issues. 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 The pacemaker's battery has reached elective replacement indicator, and he underwent pacemaker generator change on 17 June 2023. He also has a history of chronic type B aortic dissiction and endovascular therapy. Todayhe reports he's doing well from a cardiac standpoint. He has been strugging with lower abdominal pain for a few days. ER visit was unrevealing, but pain has persisted, and his primary doctor hasrecommended a return. Past Medical History He has a past medical history of CHB (complete heart block) (HCC). He has no past medical history of Awareness under anesthesia, Delayed emergence from general anesthesia, Hard to intubate, Malignant hyperthermia, Motion sickness, PONV (postoperative nausea and vomiting), Postoperative delirium, or Pseudocholinesterase deficiency. He has a past surgical history that includes Cardiac pacemaker placement (07/22/2010); Knee Arthroplasty (Left, 12/22/2007); and Carotid artery - subclavian artery bypass graft (Left, 09/23/2010). Medications Outpatient Medications Prior to Visit Medication Sig Dispense Refill acetaminophen (TYLENOL ARTHRITIS PAIN ORAL) Take 1 tablet by mouth as needed aspirin 81 mg tablet Take 1 tablet (81 mg total) by mouth nightly cholecalciferol (VITAMIN D-3) 2,000 unit capsule Take 1 capsule (2,000 Units total) by mouth every morning cloNIDine (CATAPRES) 0.1 mg tablet TAKE 1 TABLET BY MOUTH THREE TIMES DAILY 270 tablet 3 hydroCHLOROthiazide (HYDRODIURIL) 25 mg tablet Take 1 tablet by mouth once daily 90 tablet 3 labetaloL (NORMODYNE,TRANDATE) 200 mg tablet TAKE 2 TABLETS BY MOUTH ONCE DAILY IN THE MORNING AND 1 ONCE DAILY IN THE EVENING AND 2 ONCE DAILY AT BEDTIME 450 tablet 3 rosuvastatin (CRESTOR) 20 mg tablet Take 2 tablets (40 mg total) by mouth every morning No facility-administered medications prior to visit. Allergies Patient has no known allergies. Family History His family history includes Atrial fibrillation in his brother. Social History Mr. Weaver reports that he has never smoked. He has never used smokeless tobacco. He reports that he does not use drugs. Patient denies consuming alcoholic drinks. Physical Examination On physical examination, the patient is in no distress. BP 152/84 Pulse 82 Ht 172.7 cm (5' 8) Wt 86.9 kg (191 lb 9.6 oz) SpO2 94% BMI 29.13 kg/m?? Head and neck were within normal limits. There was no scleral icterus. Extraocular movements were intact. The oral mucosa was moist. The neck was supple with no thyromegaly or mass. There was no cervical lymphadenopathy. Chest was clear to auscultation bilaterally. The left sided pacemaker site is well healed. On cardiovascular examination, there was no elevation of the the jugular venous pressure appreciated. There was a regular rhythm with no murmur rub or gallop. The abdomen was soft. There was some tenderness in the lower queadrants. There was no guarding or rebound pain. There was no organomegaly or mass. Bowel sounds were present. The extremities had no edema. The skin was warm and dry without rash. The affect was normal. Diagnostic Data Interrogation of the device revealed good function and good battery and lead parameters. No programming changes were made. LABS: Chemistry Lab Results Component Value Date SODIUM 136 06/17/2023 POTASSIUM 3.8 06/17/2023 CHLORIDE 98 06/17/2023 CO2 28 06/17/2023 ANIONGAP 10 06/17/2023 BUNSER 21 06/17/2023 CREATININE 1.4 (H) 05/15/2024 GLUCOSE 99 06/17/2023 CALCIUM 9.5 06/17/2023 GFRNAA 61 (L) 06/17/2023 CrCl cannot be calculated (Patient's most recent lab result is older than the maximum 90 days allowed.). No results found for: TSH, N3BOVWU, R2EHKCJ, THYROIDAB Lab Results Component Value Date WBC 6.6 06/17/2023 HGB 14.8 06/17/2023 HCT 41.9 06/17/2023 MCV 92.1 06/17/2023 LABPLAT 120 (L) 06/17/2023 Impression I've made no recommendation for change in his medical regimen. We will plan to follow-up according to the [facility] schedule, provided no new concerns arise in the interim. It's a pleasure to see Mr. Weaver again. I'm grateful for the opportunity to participate in his care. Penelope Lemus M.D. auto damage estimator [facility] in [place] 04/24/2025 documented in this encounter Plan of Treatment Not on file documented as of this encounter Visit Diagnoses Diagnosis CHB (complete heart block)- Primary Atrioventricular block, complete Dissection of descending thoracic aorta (HCC) documented in this encounter Historical Medications * This list may reflect changes made after this encounter. eszopiclone (LUNESTA) 2 mg tablet Take 1 tablet (2 mg total) by mouth 04/07/2025 added in this encounter Care Teams Rayon Tester Relationship Specialty Start Date End Date Macario Dai MD PCP - General 11/09/16 documented as of this encounter
--- OUTSIDE RECORDS SUMMARY | 2025-04-24 14:00 | XMS_ITS | Encounter Summary ---
Author Organization [facility] Address [address] [place] [address] Phone Care Team Providers Care Psychologist Experimental Name Role Phone Macario Dai MD Primary Care Provider [phone] Reason for Visit * Cardiology (Routine) - Authorized Specialty Diagnoses / Procedures Referred By Contac t Referred To Contact Diagnoses CHB (complete heart block) Adjustment and management of cardiac pacemaker Procedures DEVICE CHECK - IN OFFICE Ehsan Nielsen MD PhD Phone: tel: fax: [facility] (All Locations) Referral ID Status Reason Start Date Expiration Date V isits Requested Visits Authorized [id number] Authorized 04/17/2024 08/21/2025 12 12 Encounter Details Date Type Department Care Team (Late st Contact Info) Description 04/24/2025 2:00 PM CDT Office Visit [facility] Medicine Cardiology [address] [facility] 8th [place] [address] [place] [id number] Ehsan Nielsen MD PhD [address] [facility] [address] [place] [address] CHB (complete heart block) (Primary [...] on file Legal Sex Male 1:40 AM FORMING MILL OPERATOR Gender Identity Male 10/07/2021 11:24 AM FORMING MILL OPERATOR Sexual Orientation Straight 10/07/2021 11 :24 AM FORMING MILL OPERATOR documented as of this encounter Last Filed [...] of seeing Jude Weaver (1945) at the [facility] Cardiac Electrophysiology Service on 04/24/2025, in [...] days allowed.). No results found for: TSH, [id number], [id number], THYROIDAB Lab Results Component Value Date WBC 6.6 06/17/2023 HGB 14.8 06/17/2023 HCT 41.9 06/17/2023 MCV 92.1 06/17/2023 LABPLAT 120 (L) 06/17/2023 Impression I've made no recommendation for change in his medical regimen. We will plan to follow-up according to the [facility] schedule, provided no new concerns arise in the interim. It's a pleasure to see Mr. Weaver again. I'm grateful for the opportunity to participate in his care. Penelope Lemus M.D. radiopharmacist [facility] in [place] 04/24/2025 documented in this encounter Plan of [...] 04/07/2025 added in this encounter Care Teams Psychologist Experimental Relationship Specialty Start Date End Date Macario Dai MD PCP - General 11/09/16 documented as of this encounter
--- OUTSIDE RECORDS SUMMARY | 2025-04-24 17:17 | XMS_ITS | Encounter Summary ---
Author Organization [facility] [employer] [facility] Address [address] [place] [address] Phone Care Team Providers Care Assistant Merchandiser Name Role Phone Macario Dai MD Primary Care Provider [phone] Encounter Details Date Type Department Care Team (Late st Contact Info) Description 12/21/2017 Orders Only [facility] CAR CLINCONV ProviderHilda MD [address] [place] [address] Social History Tobacco Use Types Packs/Day Years Used Date Smoking Tobacco: Never Sex and Gender Information Value Date Recorded Sex Assigned at Not on file Legal Sex Male 1:40 AM SPECIAL FORCES MEDICAL SERGEANT Gender Identity Male 10/07/2021 11:24 AM SPECIAL FORCES MEDICAL SERGEANT Sexual Orientation Straight 10/07/2021 11 :24 AM SPECIAL FORCES MEDICAL SERGEANT documented as of this encounter Plan of [...] on filedocumented in this encounter Care Teams Assistant Merchandiser Relationship Specialty Start Date End Date Macario Dai MD PCP - General 11/09/16 documented as of this encounter
--- OUTSIDE RECORDS SUMMARY | 2025-04-24 17:17 | XMS_ITS | Clinical Summary ---
Author Organization [facility] Address [address] [place] [address] Care Team Providers Care Chromosomal Disorders Counselor Name Role Phone Unavailable Primary Care Provider [...] - 1-dose 75+ series) 2018 COVID-19 Vaccine (1 - 2023-2 5 season) 2025 Meningococcal B Vaccine Aged Out No l onger eligible based on patient's age to complete this topic Meningococcal Vaccine Aged Out No kaylee ta eligible based on patient's age to complete this topic RSV Immunizations Under 20 Months Aged Out No longer eligible based on patient's age to complete this topic
--- OUTSIDE RECORDS SUMMARY | 2025-04-24 17:17 | XMS_ITS | Encounter Summary ---
Author Organization [facility] [employer] [facility] Address [address] [place] [address] Phone Care Team Providers Care Melter Supervisor Oxygen Furnace Name Role Phone Macario Dai MD Primary Care Provider [phone] Encounter Details Date Type Department Care Team (Late st Contact Info) Description 12/10/2015 Orders Only [facility] CAR CLINCONV ProviderHilda MD [address] [place] [address] Social History Tobacco Use Types Packs/Day Years Used Date Smoking Tobacco: Never Assessed Sex and Gender Information Value Date Recorded Sex Assigned at Not on file Legal Sex Male 1:40 AM STAKING TECHNICIAN Gender Identity Male 10/07/2021 11:24 AM STAKING TECHNICIAN Sexual Orientation Straight 10/07/2021 11 :24 AM STAKING TECHNICIAN documented as of this encounter Plan of [...] on filedocumented in this encounter Care Teams Melter Supervisor Oxygen Furnace Relationship Specialty Start Date End Date Macario Dai MD PCP - General 11/09/16 documented as of this encounter
--- OUTSIDE RECORDS SUMMARY | 2025-04-24 17:17 | XMS_ITS | Clinical Summary ---
Author Organization [facility] Address [address] [place] [address] Care Team Providers Care Software Support Representative Name Role Phone Macario Dai MD Primary [...] AT BEDTIME 450 tablet 3 5 Active eszopiclone (LUNESTA) 2 mg tablet Take 1 tablet (2 mg total) by mouth 5 Active omeprazole (PriLOSEC) 40 mg capsule [...] block treated with dual chamber pacemaker 2009 SCALLOP BINDER 100%, euvolemic on exam without indications of [...] Encounters Date Type Department Care Team Description 04/24/2025 2:00 PM CDT Office Visit [facility] Medicine Cardiology [address] [facility] 8th [place] [address] [place] [address] Ehsan Nielsen MD PhD CHB (complete heart block) (Primary Dx); Dissection of descending thoracic aorta (HCC) 04/24/2025 1:30 PM CDT Ancillary Procedure [facility] Cardiology [address] [facility] [address]th [place] [address] [place] [address] CHB (complete heart block) (Primary Dx); Adjustment and management of cardiac pacemaker from Last 3 Months Surgical History Surgery [...] on file Legal Sex Male 1:40 AM DIRECTOR OF SPORTS PERFORMANCE Gender Identity Male 10/07/2021 11:24 AM DIRECTOR OF SPORTS PERFORMANCE Sexual Orientation Straight 10/07/2021 11 :24 AM DIRECTOR OF SPORTS PERFORMANCE Obstetrics History Last Filed Vital Signs Vital Sign Reading Time Taken Comments Blood Pressure 152/84 04/24/2025 1:37 PM CDT Pulse 82 04/24/2025 1:37 PM CDT Temperature 36.6 C (97.9 F) 06/17/2023 12:30 PM CDT Respiratory Rate 14 06/17/2023 3:50 PM CDT Oxygen Saturation 94% 04/24/2025 1:37 PM CDT Inhaled Oxygen Concentration - - Weight 86.9 kg (191 lb 9.6 oz) 04/24/2025 1:37 P M CDT Height 172.7 cm (5' 8) 04/24/2025 1:37 PM CDT Body Mass Index 29.13 04/24/2025 1:37 PM CDT Plan of Treatment Health Maintenance Due Date Last Done Comments Depression Screening 1945 Fall Risk Assessment 1945 Hepatitis B Screening 1961 Zoster Vaccine (1 of 2) 1993 Well Visit 65+ 2008 Covid-19 Vaccine (4 - 2024-2 6 season) 2025 07/01/2021, 11/14/2020, 10/24/2020 Influenza Vaccine (#1) 2025 , 06/12/2021, 06/11/2020, Additional history exists DTaP/Tdap/Td Vaccine (2 - Td or Tdap) 08/29/2028 08/29/2018 Pneumococcal vaccine 65+ Completed 03/09/2022, 05/22 Medical Devices Implanted Type Area Data Base Administrator Device Identifier Shelf Expiration Date Model / Serial / Lot Pacemaker Pacemaker Heart Medtronic Inc Miriam S Mri Surescan 50.8x46.6mm 2 Chamber 7.4mm Pacemaker 22.5gm [id number] - [id number] - [id number] Implanted:Qty: 1 on 06/17/2023 by Ehsan Nielsen MD PhD at [facility] Pacemaker Medtronic Inc 11/02/2024 [id number] / [id number] / Insurance [employer] [place] [id number] MEDICARE MEDICARE [facility] INSURANCE [place] [id number] MEDICARE [employer] Care Teams Software Support Representative Relationship Specialty Start Date End Date Macario Dai MD PCP - General 11/09/16
--- OUTSIDE RECORDS SUMMARY | 2025-04-24 17:17 | XMS_ITS | Encounter Summary ---
Author Organization [facility] [employer] [facility] Address [address] [place] [address] Phone Care Team Providers Care Project Management Instructor Name Role Phone Macario Dai MD Primary Care Provider [phone] Encounter Details Date Type Department Care Team (Late st Contact Info) Description 12/15/2016 Orders Only [facility] CAR CLINCONV ProviderHilda MD [address] [place] [address] Social History Tobacco Use Types Packs/Day Years Used Date Smoking Tobacco: Never Assessed Sex and Gender Information Value Date Recorded Sex Assigned at Not on file Legal Sex Male 1:40 AM CHEMISTRY INTERN Gender Identity Male 10/07/2021 11:24 AM CHEMISTRY INTERN Sexual Orientation Straight 10/07/2021 11 :24 AM CHEMISTRY INTERN documented as of this encounter Plan of [...] on filedocumented in this encounter Care Teams Project Management Instructor Relationship Specialty Start Date End Date Macario Dai MD PCP - General 11/09/16 documented as of this encounter
--- OUTSIDE RECORDS SUMMARY | 2025-04-24 17:17 | XMS_ITS | Encounter Summary ---
Author Organization [facility] [employer] [facility] Address [address] [place] [address] Phone Care Team Providers Care Aquatic Ecologist Name Role Phone Macario Dai MD Primary Care Provider [phone] Encounter Details Date Type Department Care Team (Late st Contact Info) Description 11/28/2014 Orders Only [facility] CAR CLINCONV ProviderHilda MD [address] [place] [address] Social History Tobacco Use Types Packs/Day Years Used Date Smoking Tobacco: Never Assessed Sex and Gender Information Value Date Recorded Sex Assigned at Not on file Legal Sex Male 1:40 AM RESIDENT MANAGER Gender Identity Male 10/07/2021 11:24 AM RESIDENT MANAGER Sexual Orientation Straight 10/07/2021 11 :24 AM RESIDENT MANAGER documented as of this encounter Plan [...] on filedocumented in this encounter Care Teams Aquatic Ecologist Relationship Specialty Start Date End Date Macario Dai MD PCP - General 11/09/16 documented as of this encounter
--- OUTSIDE RECORDS SUMMARY | 2025-04-24 17:17 | XMS_ITS | Encounter Summary ---
Author Organization [facility] [employer] of [facility] Address [address] [place] [address] Phone Care Team Providers Care Medical Chief Technician Name Role Phone Macario Dai MD Primary Care Provider [phone] Encounter Details Date Type Department Care Team (Late st Contact Info) Description 12/24/2016 Orders Only [facility] CLINCONV Provider, MD Hilda [address] [place] [address] Social History Tobacco Use Types Packs/Day Years Used Date Smoking Tobacco: Never Assessed Sex and Gender Information Value Date Recorded Sex Assigned at Not on file Legal Sex Male 1:40 AM KINESIOTHERAPIST Gender Identity Male 10/07/2021 11:24 AM KINESIOTHERAPIST Sexual Orientation Straight 10/07/2021 11 :24 AM KINESIOTHERAPIST documented as of this encounter Plan of [...] on filedocumented in this encounter Care Teams Medical Chief Technician Relationship Specialty Start Date End Date Macario Dai MD PCP - General 11/09/16 documented as of this encounter
--- OUTSIDE RECORDS SUMMARY | 2025-04-24 17:17 | XMS_ITS | Encounter Summary ---
Author Organization [facility] [employer] [facility] Address [address] [place] [address] Phone Care Team Providers Care Career Guidance Counselor Name Role Phone Macario Dai MD Primary Care Provider [phone] Encounter Details Date Type Department Care Team (Late st Contact Info) Description 05/28/2014 Orders Only [facility] CAR CLINCONV ProviderHilda MD [address] [place] [address] Social History Tobacco Use Types Packs/Day Years Used Date Smoking Tobacco: Never Assessed Sex and Gender Information Value Date Recorded Sex Assigned at Not on file Legal Sex Male 1:40 AM PIPE SMOKING MACHINE OFFBEARER Gender Identity Male 10/07/2021 11:24 AM PIPE SMOKING MACHINE OFFBEARER Sexual Orientation Straight 10/07/2021 11 :24 AM PIPE SMOKING MACHINE OFFBEARER documented as of this encounter Plan of [...] on filedocumented in this encounter Care Teams Career Guidance Counselor Relationship Specialty Start Date End Date Macario Dai MD PCP - General 11/09/16 documented as of this encounter
--- OUTSIDE RECORDS SUMMARY | 2025-04-24 17:17 | XMS_ITS | Encounter Summary ---
Author Organization [facility] [employer] [facility] Address [address] [place] [address] Phone Care Team Providers Care Catapult And Arresting Gear Officer Name Role Phone Macario Dai MD Primary Care Provider [phone] Encounter Details Date Type Department Care Team (Late st Contact Info) Description 09/30/2014 Orders Only [facility] CLINCONV ProviderHilda MD [address] [place] [address] Social History Tobacco Use Types Packs/Day Years Used Date Smoking Tobacco: Never Assessed Sex and Gender Information Value Date Recorded Sex Assigned at Not on file Legal Sex Male 1:40 AM SCHOOL PSYCHOLOGY SPECIALIST Gender Identity Male 10/07/2021 11:24 AM SCHOOL PSYCHOLOGY SPECIALIST Sexual Orientation Straight 10/07/2021 11 :24 AM SCHOOL PSYCHOLOGY SPECIALIST documented as of this encounter Plan [...] on filedocumented in this encounter Care Teams Catapult And Arresting Gear Officer Relationship Specialty Start Date End Date Macario Dai MD PCP - General 11/09/16 documented as of this encounter
--- OUTSIDE RECORDS SUMMARY | 2025-04-24 18:27 | XMS_ITS | Encounter Summary ---
Author Organization [facility] [employer] [facility] Address [address] [place] [address] Phone Care Team Providers Care Airworthiness Inspector Name Role Phone Macario Dai MD Primary Care Provider [phone] Encounter Details Date Type Department Care Team (Late st Contact Info) Description 12/15/2016 Orders Only [facility] CLINCONV ProviderHilda MD [address] [place] [address] Social History Tobacco Use Types Packs/Day Years Used Date Smoking Tobacco: Never Assessed Sex and Gender Information Value Date Recorded Sex Assigned at Not on file 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
--- OUTSIDE RECORDS SUMMARY | 2025-04-24 18:27 | XMS_ITS | Encounter Summary ---
Author Organization [facility] [employer] of [facility] Address [address] [place] [address] Phone Care Team Providers Care Corporate Responsibility Officer Name Role Phone Macario Dai MD Primary Care Provider [phone] Encounter Details Date Type Department Care Team (Late st Contact Info) Description 11/28/2014 Orders Only [facility] CLINCONV ProviderHilda MD [address] [place] [address] Social History Tobacco Use Types Packs/Day Years Used Date Smoking Tobacco: Never Assessed Sex and Gender Information Value Date Recorded Sex Assigned at Not on file Legal Sex Male 1:40 AM CANVAS MARKER Gender Identity Male 10/07/2021 11:24 AM CANVAS MARKER Sexual Orientation Straight 10/07/2021 11 :24 AM CANVAS MARKER documented as of this encounter Plan of [...] on filedocumented in this encounter Care Teams Corporate Responsibility Officer Relationship Specialty Start Date End Date Macario Dai MD PCP - General 11/09/16 documented as of this encounter
--- OUTSIDE RECORDS SUMMARY | 2025-04-24 18:27 | XMS_ITS | Encounter Summary ---
Author Organization [facility] [employer] of [facility] Address [address] [place] [address] Phone Care Team Providers Care Personal Care Home Administrator Name Role Phone Macario Dai MD Primary Care Provider [phone] Encounter Details Date Type Department Care Team (Late st Contact Info) Description 12/21/2017 Orders Only [facility] CLINCONV ProviderHilda MD [address] [place] [address] Social History Tobacco Use Types Packs/Day Years Used Date Smoking Tobacco: Never Sex and Gender Information Value Date Recorded Sex Assigned at Not on file Legal Sex Male 1:40 AM FRUIT PICKER MACHINE OPERATOR Gender Identity Male 10/07/2021 11:24 AM FRUIT PICKER MACHINE OPERATOR Sexual Orientation Straight 10/07/2021 11 :24 AM FRUIT PICKER MACHINE OPERATOR documented as of this encounter [...] on filedocumented in this encounter Care Teams Personal Care Home Administrator Relationship Specialty Start Date End Date Macario Dai MD PCP - General 11/09/16 documented as of this encounter
--- OUTSIDE RECORDS SUMMARY | 2025-04-24 18:27 | XMS_ITS | Encounter Summary ---
Author Organization [facility] [employer] of [facility] Address [address] [place] [address] Phone Care Team Providers Care Residential Program Coordinator Name Role Phone Macario Dai MD Primary Care Provider [phone] Encounter Details Date Type Department Care Team (Late st Contact Info) Description 09/30/2014 Orders Only [facility] CLINCON[facility] ProviderHilda MD [address] [place] [address] Social History Tobacco Use Types Packs/Day Years Used Date Smoking Tobacco: Never Assessed Sex and Gender Information Value Date Recorded Sex Assigned at Not on file Legal Sex Male 1:40 AM INSTANTIZER OPERATOR Gender Identity Male 10/07/2021 11:24 AM INSTANTIZER OPERATOR Sexual Orientation Straight 10/07/2021 11 :24 AM INSTANTIZER OPERATOR documented as of this encounter Plan [...] on filedocumented in this encounter Care Teams Residential Program Coordinator Relationship Specialty Start Date End Date Macario Dai MD PCP - General 11/09/16 documented as of this encounter
--- OUTSIDE RECORDS SUMMARY | 2025-04-24 18:27 | XMS_ITS | Encounter Summary ---
Author Organization [facility] [employer] of [facility] Address [address] [place] [address] Phone Care Team Providers Care School Psychology Professor Name Role Phone Macario Dai MD Primary Care Provider [phone] Encounter Details Date Type Department Care Team (Late st Contact Info) Description 05/28/2014 Orders Only [facility] CLINCONV ProviderHilda MD [address] [place] [address] Social History Tobacco Use Types Packs/Day Years Used Date Smoking Tobacco: Never Assessed Sex and Gender Information Value Date Recorded Sex Assigned at Not on file Legal Sex Male 1:40 AM PROJECT LEADER Gender Identity Male 10/07/2021 11:24 AM PROJECT LEADER Sexual Orientation Straight 10/07/2021 11 :24 AM PROJECT LEADER documented as of this encounter Plan of [...] on filedocumented in this encounter Care Teams School Psychology Professor Relationship Specialty Start Date End Date Macario Dai MD PCP - General 11/09/16 documented as of this encounter
--- OUTSIDE RECORDS SUMMARY | 2025-04-24 18:27 | XMS_ITS | Clinical Summary ---
Author Organization [facility] Address [address] [place] [address] Care Team Providers Care Forest Products Teacher Name Role Phone Macario Dai MD Primary [...] block treated with dual chamber pacemaker 2009 WEAVING TEACHER 100%, euvolemic on exam without indications of [...] Description 04/24/2025 2:00 PM CDT Office Visit [facility] [address] [place] [address] [place] [address] Ehsan Nielsen MD PhD CHB (complete heart block) (Primary Dx); Dissection of descending thoracic aorta (HCC) 04/24/2025 1:30 PM CDT Ancillary Procedure [facility] [address] [place] [address] [place] [address] CHB (complete heart block) (Primary Dx); Adjustment [...] on file Legal Sex Male 1:40 AM EXPANDER Gender Identity Male 10/07/2021 11:24 AM EXPANDER Sexual Orientation Straight 10/07/2021 11 :24 AM EXPANDER Obstetrics History Last Filed Vital Signs Vital [...] 03/09/2022, 05/22 Medical Devices Implanted Type Area Vp Care Management Device Identifier Shelf Expiration Date Model / Serial / Lot Pacemaker Pacemaker Heart [employer] Miriam S Mri Surescan 50.8x46.6mm 2 Chamber 7.4mm Pacemaker 22.5gm [id number] - [id number] - [id number] Implanted:Qty: 1 on 06/17/2023 by Ehsan Nielsen MD PhD at [facility] Pacemaker [employer] 11/02/2024 [id number] / [id number] / Insurance [employer] [id number] MEDICARE MEDICARE [facility] INS[employer] [place] [id number] [place] [address] [facility] INSURANCE [place] [id number] Care Teams Forest Products Teacher Relationship Specialty Start Date End Date Macario Dai MD PCP - General 11/09/16
--- OUTSIDE RECORDS SUMMARY | 2025-04-24 18:27 | XMS_ITS | Clinical Summary ---
Author Organization [facility] Address [address] [place] [address] Care Team Providers Care Damage Cutter Name Role Phone Unavailable Primary Care Provider [...]
--- OUTSIDE RECORDS SUMMARY | 2025-04-24 18:27 | XMS_ITS | Encounter Summary ---
Author Organization [facility] [employer] of [facility] Address [address] [place] [address] Phone Care Team Providers Care Research Librarian Name Role Phone Macario Dai MD Primary Care Provider [phone] Encounter Details Date Type Department Care Team (Late st Contact Info) Description 12/10/2015 Orders Only [facility] CLINCONV ProviderHilda MD [address] [place] [address] Social History Tobacco Use Types Packs/Day Years Used Date Smoking Tobacco: Never Assessed Sex and Gender Information Value Date Recorded Sex Assigned at Not on file Legal Sex Male 1:40 AM OVERSEAMER Gender Identity Male 10/07/2021 11:24 AM OVERSEAMER Sexual Orientation Straight 10/07/2021 11 :24 AM OVERSEAMER documented as of this encounter Plan of [...] on filedocumented in this encounter Care Teams Research Librarian Relationship Specialty Start Date End Date Macario Dai MD PCP - General 11/09/16 documented as of this encounter
--- OUTSIDE RECORDS SUMMARY | 2025-04-24 18:27 | XMS_ITS | Encounter Summary ---
Author Organization [facility] [employer] of [facility] Address [address] [place] [address] Phone Care Team Providers Care Noodle Maker Name Role Phone Macario Dai MD Primary Care Provider [phone] Encounter Details Date Type Department Care Team (Late st Contact Info) Description 12/24/2016 Orders Only [facility] CAR CLINCONV Provider, MD Hilda [address] [place] [address] Social History Tobacco Use Types Packs/Day Years Used Date Smoking Tobacco: Never Assessed Sex and Gender Information Value Date Recorded Sex Assigned at Not on file Legal Sex Male 1:40 AM BUSINESS LIBRARIAN Gender Identity Male 10/07/2021 11:24 AM BUSINESS LIBRARIAN Sexual Orientation Straight 10/07/2021 11 :24 AM BUSINESS LIBRARIAN documented as of this encounter Plan of [...] on filedocumented in this encounter Care Teams Noodle Maker Relationship Specialty Start Date End Date Macario Dai MD PCP - General 11/09/16 documented as of this encounter
--- NOTE | 2025-04-24 19:24 | ECG_ITS ---
Test Date: 2025-04-24 19:43:26 Measurements Intervals [place]ney Rate: 60 P: -81 UT: 161 QRS: -58 QRSD: 187 T: 115 QT: 486 QTc: 488 Interpretive Statements ELECTRONIC ATRIAL PACEMAKER ELECTRONIC VENTRICULAR PACEMAKER ABNORMAL RHYTHM ECG No previous ECG available for comparison Electronically Signed On 04-25-2025 11:32:15 CDT by Joce Louise M.D.
[2025-04-24] MEDS: HYDROmorphone HCL INJ (*CRX) 1 MG/ML SYR 0.5 MG IV PUSH (20:16)
[2025-04-24 20:17] LABS: Hematocrit 44.8 % (42.0-52.0); Hemoglobin 15.2 g/dL (14.0-18.0); Immature Granulocyte Percent A 0.4 % (0-0.5); Immature Platelet Fraction Pct 1.7 % (0.9-11.2); Lymphocytes Absolute Auto 0.53 K/mm3 (0.9-3.2); Mean Corpuscular HGB Conc 33.9 g/dl (32-36); Mean Corpuscular Hemoglobin 32.0 pg (26-34); Mean Corpuscular Volume 94.3 fl (80-100); Nucleated Red Blood Cells Absolute Auto 0.000 K/mm3 (0.0-0.012); Nucleated Red Blood Cells Perc 0.0 % (0.0-0.2); Platelet Count Result 106 k/mm3 (150-375); Red Blood Count 4.75 M/mm3 (4.6-6.20); White Blood Count 9.3 K/mm3 (4.5-10.0)
[2025-04-24] MEDS: SODIUM CHLORIDE 0.9% IV 1,000 ML 999 ML IV CONT (20:17)
[2025-04-24 20:21] LABS: Add Urine Microscopic? YES; Appearance Urine Cloudy (Clear); Glucose Urine UA Negative (Negative); Leukocyte Esterase Ur Negative LEU/UL (Negative); Nitrate Urine Negative (Negative); Specific Grav Ur 1.012 (1.001-1.035)
[2025-04-24 20:57] LABS: Alanine Aminotransferase 20 U/L (6-50); Albumin Level 3.5 g/dL (3.5-5.1); Alkaline Phosphatase 71 U/L (38-126); Anion Gap 6 mmol/L (4-12); Aspartate Amino Transferase 37 U/L (17-59); Bilirubin,Total 0.9 mg/dL (0.2-1.3); Blood Urea Nitrogen 20 mg/dL (9-20); Calcium 8.8 mg/dL (8.4-10.2); Carbon Dioxide 27 mmol/L (22-30); Chloride 100 mmol/L (98-107); Estimated CRCL calculation 52 ml/min; Estimated Glomerular Filt Rate > 60; Glucose 94 mg/dL (65-110); Lipase 33 U/L (23-300); Magnesium 1.2 mg/dL (1.6-2.3); Potassium 3.5 mmol/L (3.4-5.0); Sodium 133 mmol/L (137-145); Total Protein 6.2 g/dL (6.3-8.2)
--- NOTE | 2025-04-24 21:04 | ED.GENADULT ---
HPI - General Adult General Chief complaint: Abdominal Pain <Korey John MD - Last Filed: 04/24/25 21:48> Stated complaint: abd pain <Korey John MD - Last Filed: 04/24/25 21:48> Time Seen by Provider: 04/24/25 17:54 <Korey John MD - Last Filed: 04/24/25 21:48> History of Present Illness HPI narrative: This is an 79-year-old male presenting ED with chief complaint of abdominal pain. Symptoms have been ongoing for 2 weeks. Pain is a sharp pain just below his belly button slightly worse on the left than right. It is nonradiating. Severe in intensity. Constant and getting worse. Patient has never had pain like this before and there is no alleviating or exacerbating symptoms. Patient notes that his symptoms started after taking MiraLax and having significant diarrhea. Patient has been having a bowel movement every 45 minutes which he describes as small in volume and soft but not diarrhea. Denies fevers chills nausea vomiting diarrhea chest pain or difficulty breathing. No lower extremity weakness. He says this is not feel like when he suffered his abdominal aortic dissection which was more in his back. He has been getting routine screening of his AAA with no changes. Patient was seen here on 04/19 with chronic changes to his CTA. This was reviewed with vascular surgery at [place] and the AAA is unchanged. <Korey John MD - Last Filed: 04/24/25 21:48> Related Data Home medications: Home Medications ?Medication ?Instructions ?Recorded ?Confirmed ?Last Taken ?Type aspirin 81 mg tablet,delayed 81 mg PO DAILY 11/13/19 09/27/24 Unknown History release (Adult Low Dose Aspirin) clonidine HCl 0.1 mg tablet 0.1 mg PO TID 11/13/19 09/27/24 Unknown History hydrochlorothiazide 25 mg tablet 25 mg PO DAILY 11/13/19 09/27/24 Unknown History labetalol 200 mg tablet 200 mg PO TID 11/13/19 09/27/24 11/19/22 09:30 History cholecalciferol (vitamin D3) 50 50 mcg PO DAILY 11/15/22 09/27/24 Unknown History mcg (2,000 unit) tablet (Vitamin D3) diphenhydramine HCl 50 mg tablet 50 mg PO DAILY 11/15/22 09/27/24 Unknown History <Korey John MD - Last Filed: 04/24/25 21:48> Allergies/adverse reactions: Allergies Allergy/AdvReac Type Severity Reaction Status Date / Time No Known Allergies Allergy Verified 04/24/25 16:44 <Korey John MD - Last Filed: 04/24/25 21:48> [facility] Past Medical History Medical History: Medical History Pharyngitis Pacemaker Colonoscopy planned Hernia Aortic dissection Claudication of upper extremity H/O cardiac pacemaker Chronic low back pain Traumatic tear of thoracic aorta History of squamous cell carcinoma History of actinic keratosis Skin cancer screening JONI (obstructive sleep apnea) Enlarged prostate without lower urinary tract symptoms (luts) Essential (primary) hypertension Mixed hyperlipidemia Vitamin D deficiency, unspecified <Korey John MD - Last Filed: 04/24/25 21:48> Surgical History Surgical History: Surgical History History of knee replacement <Korey John MD - Last Filed: 04/24/25 21:48> Family History Family History: Family History Mother Hypertension Father Patient's father is Aortic aneurysm Sibling Pacemaker Sibling COPD (chronic obstructive pulmonary disease) Tobacco abuse <Korey John MD - Last Filed: 04/24/25 21:48> Social History Social History: Social History Smoking status: Never smoker Second hand tobacco smoke exposure: No Alcohol intake: never Substance use: never Substance use type: does not use Do You Feel Safe in your Home?: Yes Lack of Transportation: No Lack of Food: Never True Current Housing: I Have Housing Concerned About Future Housing: No Difficulty Paying Gas/Electric Bills: No Difficulty Paying for Meds: No Currently Unemployed: No Education: High School Diploma/GED Difficulty w/ Childcare or Family Care: No Living arrangements: with family Occupation/Education: retired 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 Head: atraumatic. EYES: EOMI, NOSE: Atraumatic NECK: Trachea midline RESPIRATORY: No increased rate of breathing clear to auscultation CARDIOVASCULAR: RRR, +2 pulses all extremities. ABDOMINAL: very mild tenderness in the suprapubic/left lower quadrant without guarding or rebound. No CVA tenderness. MUSCULOSKELETAl: No obvious deformities NEURO: Alert. Moving 4/4 extremities SKIN:: Warm, dry. Normal color PSYCHIATRIC: Normal affect <Korey John MD - Last Filed: 04/24/25 21:48> Course Vital Signs Vital signs: Vital Signs Temperature 97.6 F 04/24/25 16:42 Pulse Rate 78 04/24/25 16:42 Respiratory Rate 16 04/24/25 16:42 Blood Pressure 174/113 H 04/24/25 16:42 Pulse Oximetry 97 04/24/25 16:42 Oxygen Delivery Room Air 04/24/25 16:42 Temperature 97.6 F 04/24/25 16:42 Pulse Rate 75 04/24/25 23:53 Respiratory Rate 18 04/24/25 23:53 Blood Pressure 138/89 04/24/25 23:53 Pulse Oximetry 99 04/24/25 23:53 Oxygen Delivery Room Air 04/24/25 16:42 <Korey John MD - Last Filed: 04/24/25 21:48> Vital Signs Temperature 97.6 F 04/24/25 16:42 Pulse Rate 78 04/24/25 16:42 Respiratory Rate 16 04/24/25 16:42 Blood Pressure 174/113 H 04/24/25 16:42 Pulse Oximetry 97 04/24/25 16:42 Oxygen Delivery Room Air 04/24/25 16:42 Temperature 97.6 F 04/24/25 16:42 Pulse Rate 75 04/24/25 23:53 Respiratory Rate 18 04/24/25 23:53 Blood Pressure 138/89 04/24/25 23:53 Pulse Oximetry 99 04/24/25 23:53 Oxygen Delivery Room Air 04/24/25 16:42 <Reynold Sanchez MD - Last Filed: 04/25/25 03:24> Medical Decision Making MDM Narrative Medical decision making narrative: -Course: 79-year-old male presenting with 2 weeks of abdominal pain associated with multiple soft stools. Abdominal exam shows mild tenderness but no guarding or rebound. Laboratory studies within normal limits except for magnesium which was 1.2 and has been replaced. Patient was given pain medication and a CTA chest abdomen pelvis was ordered to evaluate for intra-abdominal pathology and vascular pathology. Patient has been signed out to the oncoming physician pending CT imaging and response to treatment. -DDX includes but is not limited to: Colitis, diverticulitis, UTI, vascular pathology <Korey John MD - Last Filed: 04/24/25 21:48> Vital Signs Vital Signs: Vital Signs Temperature 97.6 F 04/24/25 16:42 Pulse Rate 78 04/24/25 16:42 Respiratory Rate 16 04/24/25 16:42 Blood Pressure 174/113 H 04/24/25 16:42 Pulse Oximetry 97 04/24/25 16:42 Oxygen Delivery Room Air 04/24/25 16:42 Temperature 97.6 F 04/24/25 16:42 Pulse Rate 75 04/24/25 23:53 Respiratory Rate 18 04/24/25 23:53 Blood Pressure 138/89 04/24/25 23:53 Pulse Oximetry 99 04/24/25 23:53 Oxygen Delivery Room Air 04/24/25 16:42 <Korey John MD - Last Filed: 04/24/25 21:48> Vital Signs Temperature 97.6 F 04/24/25 16:42 Pulse Rate 78 04/24/25 16:42 Respiratory Rate 16 04/24/25 16:42 Blood Pressure 174/113 H 04/24/25 16:42 Pulse Oximetry 97 04/24/25 16:42 Oxygen Delivery Room Air 04/24/25 16:42 Temperature 97.6 F 04/24/25 16:42 Pulse Rate 75 04/24/25 23:53 Respiratory Rate 18 04/24/25 23:53 Blood Pressure 138/89 04/24/25 23:53 Pulse Oximetry 99 04/24/25 23:53 Oxygen Delivery Room Air 04/24/25 16:42 <Reynold Sanchez MD - Last Filed: 04/25/25 03:24> Lab Data Result diagrams: 04/24/25 20:05 04/24/25 20:39 <Korey John MD - Last Filed: 04/24/25 21:48> Labs: Lab Results 04/24/25 04/24/25 Range/Units 20:05 20:39 WBC 9.3 (4.5-10.0) K/mm3 RBC 4.75 (4.6-6.20) M/mm3 Hgb 15.2 (14.0-18.0) g/dL Hct 44.8 (42.0-52.0) % MCV 94.3 (80-100) fl MCH 32.0 (26-34) pg MCHC 33.9 (32-36) g/dl RDW 12.8 (11.5-14.5) % Plt Count 106 L (150-375) k/mm3 MPV 9.2 (7.4-10.4) fl Immature Gran % (Auto) 0.4 (0-0.5) % Neut % (Auto) 85.2 H (45.5-73.1) % Lymph % (Auto) 5.7 L (18.3-44.2) % [place] % (Auto) 5.4 (2.6-8.5) % Eos % (Auto) 2.8 (0-4.4) % Baso % (Auto) 0.5 (0.2-1.2) % Lymph # (Auto) 0.53 L (0.9-3.2) K/mm3 [place] # (Auto) 0.5 (0.1-0.6) K/mm3 Eos # (Auto) 0.3 (0-0.3) K/mm3 Baso # (Auto) 0.1 (0.0-0.1) K/mm3 Abs Immat Gran (auto) 0.04 H (0.00-0.031) K/mm3 Absolute Neuts (auto) 7.9 H (1.3-6.7) K/mm3 Absolute Nucleated RBC 0.000 (0.0-0.012) K/mm3 Nucleated RBC % 0.0 (0.0-0.2) % % Immature Plt Fraction 1.7 (0.9-11.2) % Sodium 133 L (137-145) mmol/L Potassium 3.5 (3.4-5.0) mmol/L Chloride 100 (98-107) mmol/L Carbon Dioxide 27 (22-30) mmol/L Anion Gap 6 (4-12) mmol/L BUN 20 (9-20) mg/dL Creatinine 1.05 (0.7-1.3) mg/dL Estim Creat Clear Calc 52 ml/min Estimated GFR > 60 (59 - ) Glucose 94 (65-110) mg/dL Lactic Acid 1.4 (0.7-2.0) mmol/L Calcium 8.8 (8.4-10.2) mg/dL Phosphorus 3.1 (2.5-4.5) mg/dL Magnesium 1.2 L (1.6-2.3) mg/dL Total Bilirubin 0.9 (0.2-1.3) mg/dL AST 37 (17-59) U/L ALT 20 (6-50) U/L Alkaline Phosphatase 71 (38-126) U/L Total Protein 6.2 L (6.3-8.2) g/dL Albumin 3.5 (3.5-5.1) g/dL Lipase 33 (23-300) U/L Urine Color Yellow (Yellow) Urine Appearance Cloudy H (Clear) Urine pH 7.0 (5.0-9.0) Ur Specific [place] 1.012 (1.001-1.035) Urine Protein 3+ H (Negative) mg/dL Urine Glucose (UA) Negative (Negative) mg/dL Urine Ketones Negative (Negative) mg/dL Ur Blood (Man) 2+ H (Negative) Urine Nitrate Negative (Negative) Urine Bilirubin Negative (Negative) Urine Urobilinogen 0.2 (<2.0) mg/dL Leukocyte Esterase Rfl Negative (Negative) ISIS/UL Urine RBC 6-10 H (0-2) /hpf Urine WBC 0-5 (0-3) /hpf Ur Squamous Epith Cells None seen (Few) /hpf Urine Bacteria None seen /hpf Urine Casts 3-5 <Korey John MD - Last Filed: 04/24/25 21:48> Lab Results 04/24/25 04/24/25 Range/Units 20:05 20:39 WBC 9.3 (4.5-10.0) K/mm3 RBC 4.75 (4.6-6.20) M/mm3 Hgb 15.2 (14.0-18.0) g/dL Hct 44.8 (42.0-52.0) % MCV 94.3 (80-100) fl MCH 32.0 (26-34) pg MCHC 33.9 (32-36) g/dl RDW 12.8 (11.5-14.5) % Plt Count 106 L (150-375) k/mm3 MPV 9.2 (7.4-10.4) fl Immature Gran % (Auto) 0.4 (0-0.5) % Neut % (Auto) 85.2 H (45.5-73.1) % Lymph % (Auto) 5.7 L (18.3-44.2) % [place] % (Auto) 5.4 (2.6-8.5) % Eos % (Auto) 2.8 (0-4.4) % Baso % (Auto) 0.5 (0.2-1.2) % Lymph # (Auto) 0.53 L (0.9-3.2) K/mm3 [place] # (Auto) 0.5 (0.1-0.6) K/mm3 Eos # (Auto) 0.3 (0-0.3) K/mm3 Baso # (Auto) 0.1 (0.0-0.1) K/mm3 Abs Immat Gran (auto) 0.04 H (0.00-0.031) K/mm3 Absolute Neuts (auto) 7.9 H (1.3-6.7) K/mm3 Absolute Nucleated RBC 0.000 (0.0-0.012) K/mm3 Nucleated RBC % 0.0 (0.0-0.2) % % Immature Plt Fraction 1.7 (0.9-11.2) % Sodium 133 L (137-145) mmol/L Potassium 3.5 (3.4-5.0) mmol/L Chloride 100 (98-107) mmol/L Carbon Dioxide 27 (22-30) mmol/L Anion Gap 6 (4-12) mmol/L BUN 20 (9-20) mg/dL Creatinine 1.05 (0.7-1.3) mg/dL Estim Creat Clear Calc 52 ml/min Estimated GFR > 60 (59 - ) Glucose 94 (65-110) mg/dL Lactic Acid 1.4 (0.7-2.0) mmol/L Calcium 8.8 (8.4-10.2) mg/dL Phosphorus 3.1 (2.5-4.5) mg/dL Magnesium 1.2 L (1.6-2.3) mg/dL Total Bilirubin 0.9 (0.2-1.3) mg/dL AST 37 (17-59) U/L ALT 20 (6-50) U/L Alkaline Phosphatase 71 (38-126) U/L Total Protein 6.2 L (6.3-8.2) g/dL Albumin 3.5 (3.5-5.1) g/dL Lipase 33 (23-300) U/L Urine Color Yellow (Yellow) Urine Appearance Cloudy H (Clear) Urine pH 7.0 (5.0-9.0) Ur Specific [place] 1.012 (1.001-1.035) Urine Protein 3+ H (Negative) mg/dL Urine Glucose (UA) Negative (Negative) mg/dL Urine Ketones Negative (Negative) mg/dL Ur Blood (Man) 2+ H (Negative) Urine Nitrate Negative (Negative) Urine Bilirubin Negative (Negative) Urine Urobilinogen 0.2 (<2.0) mg/dL Leukocyte Esterase Rfl Negative (Negative) ISIS/UL Urine RBC 6-10 H (0-2) /hpf Urine WBC 0-5 (0-3) /hpf Ur Squamous Epith Cells None seen (Few) /hpf Urine Bacteria None seen /hpf Urine Casts 3-5 <Reynold Sanchez MD - Last Filed: 04/25/25 03:24> Medical Decision Making MDM Documentation: Patient was signed out pending CTA abdomen/ pelvis. CTA showed no changes in AAA given patient's recurrent symptoms, he will require further follow-up with GI. He was given a prescription for hydrocodone in the event his severe pain returns. Patient and family were agreeable to this plan. Given strict return precautions. <Reynold Sanchez MD - Last Filed: 04/25/25 03:24> Discharge Plan Discharge Clinical Impression: Abdominal pain <Korey John MD - Last Filed: 04/24/25 21:48> Patient Disposition: Home <Korey John MD - Last Filed: 04/24/25 21:48> Condition: Stable <Korey John MD - Last Filed: 04/24/25 21:48> Instructions: Antibiotic Form, Abdominal Pain (ED) <Korey John MD - Last Filed: 04/24/25 21:48> Additional Instructions: You were seen in the emergency department for abdominal pain. Please follow-up with your primary care physician and the GI doctor listed below in 1 week. Please use Tylenol for pain. Take hydrocodone for severe pain. Return if you develop fevers, severe abdominal pain, or bloody diarrhea. <Korey John MD - Last Filed: 04/24/25 21:48> Patient Language: Croatian <Korey John MD - Last Filed: 04/24/25 21:48> Prescriptions: New hydrocodone-acetaminophen 5-325 mg tablet 1 tablet PO Q8H PRN (Reason: pain) Qty: 6 0RF No Action aspirin [Adult Low Dose Aspirin] 81 mg tablet,delayed release (DR/EC) 81 mg PO DAILY clonidine HCl 0.1 mg tablet 0.1 mg PO TID hydrochlorothiazide 25 mg tablet 25 mg PO DAILY labetalol 200 mg tablet 200 mg PO TID diphenhydramine HCl 50 mg Tablet 50 mg PO DAILY cholecalciferol (vitamin D3) [Vitamin D3] 50 mcg (2,000 unit) Tablet 50 mcg PO DAILY rosuvastatin [Crestor] 40 mg tablet 40 mg PO DAILY Qty: 90 3RF eszopiclone [Lunesta] 2 mg tablet 2 mg PO QHS Qty: 30 2RF <Korey John MD - Last Filed: 04/24/25 21:48> Follow-up/Referrals: aris [Other] Kwadwo Craft MD [Physician, Gastroenterology] - 1 Week Macario Dai MD [Primary Care Provider, Family Practice] <Korey John MD - Last Filed: 04/24/25 21:48>
[2025-04-24] MEDS: MAGNESIUM SULF 2 GM/WATER 50ML 2 GM/50 ML BAG IVPB (21:25)
[2025-04-24] MEDS: HYDROcodone/acetaminophen (*CRX) 5-325 MG TABLET 1 TAB PO (23:42)
== END 2025-04-24 23:54 | disposition home or self-care (01) ==
PROVIDERS: Emergency Provider Emergency Medicine; PCP Family Medicine
DX: R10.32 Left lower quadrant pain (principal); I71.02 Dissection of abdominal aorta; I71.20 Thoracic aortic aneurysm, without rupture, unspecified; I10 Essential (primary) hypertension; E78.2 Mixed hyperlipidemia; E55.9 Vitamin D deficiency, unspecified; N40.0 Benign prostatic hyperplasia without lower urinary tract symptoms; G47.33 Obstructive sleep apnea (adult) (pediatric); Z95.0 Presence of cardiac pacemaker; Z85.828 Personal history of other malignant neoplasm of skin; Z96.659 Presence of unspecified artificial knee joint; R93.41 Abnormal radiologic findings on diagnostic imaging of renal pelvis, ureter, or bladder; Z79.82 Long term (current) use of aspirin; Z79.899 Other long term (current) drug therapy
CPT/HCPCS: 36415; 71275; 74174; 80053; 81001; 83605; 83690; 83735; 84100; 85025; 85055; 93005; 96361; 96365; 96366; 96375; 99284; A9270; J1171; J3475; J7030; Q9967